=== PATIENT | female | born 1995 | race Caucasian/White ===

== ENCOUNTER 2020-07-13 18:43 | Outpatient (CLI) | payer OTHER, SELFPAY ==
[2020-07-15 02:52] LABS: SARS-CoV-2 RNA PCR Positive
== END 2020-07-13 18:44 | disposition home or self-care (01) ==
LOC: CHSLAB 18:46
PROVIDERS: PCP Family Medicine; Visit Provider Family Medicine
DX: U07.1 COVID-19 (principal); J02.9 Acute pharyngitis, unspecified; J06.9 Acute upper respiratory infection, unspecified
CPT/HCPCS: 87081; 87635; 87880; C9803; U0003

== ENCOUNTER 2021-06-06 12:45 | Outpatient (CLI) | payer OTHER, SELFPAY ==
[2021-06-06 13:05] VITALS: BP 114/79; PULSE 90
[2021-06-06 14:01] VITALS: BP 114/79; PULSE 90
== END 2021-06-06 13:55 | disposition home or self-care (01) ==
LOC: ANHOBOP 12:55 → ANHLDR 12:56
PROVIDERS: PCP Family Medicine; Visit Provider Obstetrics & Gynecology
DX: O26.859 Spotting complicating pregnancy, unspecified trimester (principal); Z3A.00 Weeks of gestation of pregnancy not specified
CPT/HCPCS: 59025; 84112; 99199

== ENCOUNTER 2021-06-13 01:33 | Inpatient (IN) | payer OTHER, SELFPAY ==
[2021-06-13] VITALS (102 sets, daily range): BP systolic 84–143; BP diastolic 45–108; PULSE 60–148; RESP 16; TEMP 36.4–36.6; O2SAT 95–100; BMI 29.0
[2021-06-13 02:39] LABS: Basophils Percent Auto 0.2 % (0.2-1.2); Eosinophils Absolute Auto 0.1 K/mm3 (0-0.3); Eosinophils Percent Auto 0.6 % (0-4.4); Hematocrit 36.6 % (37.0-47.0); Hemoglobin 11.9 g/dL (12.0-15.0); Immature Granulocyte Absolute 0.04 K/mm3 (0.00-0.031); Immature Granulocyte Percent A 0.4 % (0-0.5); Lymphocytes Absolute Auto 2.69 K/mm3 (0.9-3.2); Lymphocytes Percent Auto 26.7 % (18.3-44.2); Mean Corpuscular HGB Conc 32.5 g/dl (32-36); Mean Corpuscular Hemoglobin 28.1 pg (26-34); Mean Corpuscular Volume 86.5 fl (80-100); Mean Platelet Volume 10.2 fl (7.4-10.4); Monocytes Absolute Auto 0.7 K/mm3 (0.1-0.6); Monocytes Percent Auto 7.1 % (2.6-8.5); Neutrophils Absolute Auto 6.5 K/mm3 (1.3-6.7); Platelet Count Result 275 k/mm3 (150-375); Red Blood Count 4.23 M/mm3 (4.2-5.4); Red Cell Distribution Width 12.5 % (11.5-14.5); White Blood Count 10.1 K/mm3 (4.5-10.0)
--- NOTE | 2021-06-13 02:39 | LDADM ---
This patient, Rosalie Glover, was admitted to Labor/Delivery/Recovery 102 on 06/13/21 at 01:33. Plans for labor, pain management and were discussed with patient. Patient/family oriented to hospital policies and general routines including ID bracelet, bed and alarms, visiting hours, pain management, procedures, bathroom and other care routines, personal items, smoking policy, room service/diet and guest tray routines, security routines, and visiting hours. Patient/Family are encouraged to report perceived risks to care and to ask questions if they do not understand what they are told or what they should do. See OBIX for further documentation.
[2021-06-13 02:56] LABS: Glucose Point of Care 86 mg/dl (65-105)
[2021-06-13] MEDS: fentaNYL CITRATE INJ (*CRX) 100 MCG/2 ML VIAL 50 MCG IV PUSH (02:59)
[2021-06-13] MEDS: LACTATED RINGERS 1,000 ML 125 ML IV CONT ×2 (03:44→06:42)
[2021-06-13] MEDS: ONDANSETRON INJ 4 MG/2 ML VIAL IV PUSH (04:52)
--- NOTE | 2021-06-13 06:03 | WPDANESEPPF ---
Anes - Initial Pre Proc Eval Procedure: labor epidural Date/Time: 06/13/21 06:03 Surgeon: Janet Barragan MD Pre Op Diagnosis: labor pain Pre Op Diagnosis: ROM Patient Data Age: 26 Gender: F Height: 1.65 m Weight: 79 kg Last Vital Signs Temp 36.4 C 06/13/21 01:45 Pulse 73 06/13/21 06:02 BP 130/74 06/13/21 06:02 Pulse Ox 97 06/13/21 06:02 Allergies Allergy/AdvReac Type Severity Reaction Status Date / Time codeine Allergy Rash Verified 06/06/21 13:47 Home Medications Medication Instructions Recorded Confirmed Type prenat.vits,reema,[id number] 1 tablet PO DAILY 06/06/21 06/06/21 History [ Vitamin] Laboratory Tests 06/13/21 06/13/21 06/13/21 02:26 02:26 02:26 WBC 10.1 K/mm3 H K/mm3 (4.5-10.0) RBC 4.23 M/mm3 M/mm3 (4.2-5.4) Hgb 11.9 g/dL L g/dL (12.0-15.0) Hct 36.6 % L % (37.0-47.0) MCV 86.5 fl fl (80-100) MCH 28.1 pg pg (26-34) MCHC 32.5 g/dl g/dl (32-36) RDW 12.5 % % (11.5-14.5) Plt Count 275 k/mm3 k/mm3 (150-375) MPV 10.2 fl fl (7.4-10.4) Immature Gran % (Auto) 0.4 % % (0-0.5) Neut % (Auto) 65.0 % % (45.5-73.1) Lymph % (Auto) 26.7 % % (18.3-44.2) Stearns % (Auto) 7.1 % % (2.6-8.5) Eos % (Auto) 0.6 % % (0-4.4) Baso % (Auto) 0.2 % % (0.2-1.2) Lymph # (Auto) 2.69 K/mm3 K/mm3 (0.9-3.2) Stearns # (Auto) 0.7 K/mm3 H K/mm3 (0.1-0.6) Eos # (Auto) 0.1 K/mm3 K/mm3 (0-0.3) Baso # (Auto) 0.0 K/mm3 K/mm3 (0.0-0.1) Abs Immat Gran (auto) 0.04 K/mm3 H K/mm3 (0.00-0.031) Absolute Neuts (auto) 6.5 K/mm3 K/mm3 (1.3-6.7) Absolute Nucleated RBC 0.0 K/mm3 K/mm3 (0.0-0.012) Nucleated RBC % 0.0 % % (0.0-0.2) POC Capillary Glucose RPR Pending Blood Type O Positive Antibody Screen Negative 06/13/21 02:28 WBC RBC Hgb Hct MCV MCH MCHC RDW Plt Count MPV Immature Gran % (Auto) Neut % (Auto) Lymph % (Auto) Stearns % (Auto) Eos % (Auto) Baso % (Auto) Lymph # (Auto) Stearns # (Auto) Eos # (Auto) Baso # (Auto) Abs Immat Gran (auto) Absolute Neuts (auto) Absolute Nucleated RBC Nucleated RBC % POC Capillary Glucose 86 mg/dl mg/dl (65-105) RPR Blood Type Antibody Screen Patient hx anesthesia problems: none Family hx anesthesia problems: none [facility] Past Medical History Medical History No active medical problems Surgical History Surgical History S/P breast lumpectomy S/P tonsillectomy Family History Family History Mother Breast cancer Social History Social History Smoking status: Never smoker Second hand tobacco smoke exposure: No Alcohol intake: never Substance use: never Gender identity (if verbalized by the patient): Female Spiritual care concerns: No Anes - Eval Final PreProcedure Day of Procedure 06/13/21 06:03 Patient weight: overweight Heart: regular rate and rhythm Lungs: clear to auscultation and normal air movement Airway: Mallampati scale Neurological: alert and oriented ASA classification: II Emergent: no Anesthetic plan: proceed Anesthesia type and monitoring: regional epidural and standard monitoring Informed Consent: The patient's anesthetic plan and its attendant risks and benefits were discussed with the patient/family/POA. Questions were solicited and answers provided to the satisfaction of the patient/family/POA.
[2021-06-13 07:36] LABS: Glucose Point of Care 85 mg/dl (65-105)
[2021-06-13] MEDS: OXYTOCIN 30 UNITS/NS 500 ML 30 UNITS/500 ML BAG IV CONT (09:03)
[2021-06-13 09:48] LABS: Glucose Point of Care 76 mg/dl (65-105)
--- NOTE | 2021-06-13 11:01 | WPDOBADMIT ---
Obstetrics - Admit Note Admission Note: record reviewed. No pertinent additions to the history and/or any subsequent changes in the physical findings that are not consistent with the expected course of the were found. pt arrived after SROM, preg complicated by Diet controlled GDM Additions to the history and/or subsequent changes in the physical findings follow. None.
[2021-06-13] MEDS: OXYTOCIN 30 UNITS/NS 500 ML 30 UNITS/500 ML BAG 125 UNITS IV CONT (11:15)
[2021-06-13 11:24] LABS: Rapid Plasma Reagin Non-Reactive (NonReactive)
[2021-06-13] MEDS: WITCH HAZEL 40 PADS 1 PAD TOPICAL (13:03)
[2021-06-13] MEDS: BENZOCAINE 20% AER SPR (*SP) 56 GM CAN 1 SPRAY TOPICAL (13:03)
[2021-06-13] MEDS: IBUPROFEN 600 MG TABLET PO ×2 (13:03→21:05)
--- NOTE | 2021-06-13 14:15 | PC.NURSE ---
Mother called out for assist with feeding. Infant is able to freely thrust tongue past gum ridge and flange both lips. Skin is intact on both nipples, no redness and bruising noted. both nipples are flat, mother was given a nipple shield for first feeding. Infant was unable to latch and draw nipple in. Reviewed feeding cues, frequencies, duration of feedings, feeding elimination flow sheet, and signs of adequate intake. Demonstrated stimulation techniques to wake infant for feeding. Assisted with to breast. Reviewed positioning/alignment in cross cradle, holding breast in ?U? hold and guided asymmetrical latch on. Discussed rational for each. Several attempts made, was unable to latch correctly. After several attempts, was sleepy and did not make eager attempts. Suggested skin to skin for 15-30 minutes. Requested mother call out if infant wakes and has feeding cues before 30 minutes.
[2021-06-13] MEDS: DOCUSATE SODIUM 100 MG CAPSULE PO (16:40)
[2021-06-13] MEDS: ACETAMINOPHEN 325 MG TABLET 650 MG PO ×2 (16:40→23:27)
[2021-06-13] MEDS: MULTIVIT/MIN/PREN/FOL AC/IRON TABLET 1 TAB PO (16:41)
[2021-06-13] MEDS: POLYSACCHARIDE IRON COMPLEX 150 MG CAPSULE PO (16:41)
[2021-06-14] MEDS: IBUPROFEN 600 MG TABLET PO ×2 (03:25→12:36)
[2021-06-14 05:11] LABS: Hematocrit 32.9 % (37.0-47.0); Hemoglobin 10.3 g/dL (12.0-15.0)
[2021-06-14] MEDS: DOCUSATE SODIUM 100 MG CAPSULE PO (07:21)
[2021-06-14] MEDS: ACETAMINOPHEN 325 MG TABLET 650 MG PO (07:21)
[2021-06-14 07:30] VITALS: PULSE 80; RESP 16; O2SAT 98
--- NOTE | 2021-06-14 07:34 | PM.OBPNVD ---
OB - PN: Subj Subjective Date/time seen: 06/14/21 07:34 Patient comments: no complaints baby status: doing well OB - PN: Obj Data Labs CBC & Chem 7: 06/14/21 03:36 Labs: Laboratory Results - last 24 hr 06/13/21 06/13/21 06/13/21 02:26 07:33 09:45 Hgb Hct POC Capillary Glucose 85 76 RPR Non-reactive 06/14/21 03:36 Hgb 10.3 L Hct 32.9 L POC Capillary Glucose RPR OB - PN A/P Plan day: 1 Plan: routine care Time Spent With Patient Time: Total time spent is greater than 50% in coordination of care (as documented) at patient's floor/unit and/or counseling patient: Review of Systems Review of Systems: All systems reviewed & are unremarkable except as noted in HPI and below Exam Narrative: Exam Narrative: perineal lac healing well Const: General: cooperative Limitations: no limitations
--- NOTE | 2021-06-14 07:42 | PM.OBDSVD ---
DS: Admitting Diagnosis Admitting Diagnosis Admitting Diagnosis: SROM OB - DS: Summary OB Procedures : None OB Procedures Intrapartum: Spontaneous Vag Delivery OB Procedures: : None Time Spent with Patient Time attestation: Total time spent providing and/or coordinating discharge services: DS: Data Data Completed and Pending Pending studies at discharge: Pending at discharge 06/13/21 11:19 Surgical [PTH] Routine Labs on day of discharge: Labs from last 24 hours 06/14/21 06/13/21 06/13/21 03:36 09:45 02:26 Hgb 10.3 L Hct 32.9 L POC Capillary Glucose 76 RPR Non-reactive Discharge Plan Discharge Attending physician on discharge: Janet Barragan Discharging Clinician: Nallely Holloway Patient Disposition: Home, Self-Care Activity: no shower Diet: regular Discharge Instructions: Education: Mom and Baby Guide Given to: Mother Follow-Up: Call your delivering provider's office for an appointment to be seen in: 4 Weeks Mom and baby should come to the [facility] for the follow-up appointment. Appointment Date/Time: Wednesday, June 16, 2021 at 11:00 a.m. What to expect at your follow-up visit: Blood Pressure Check Physical Assessment Call [phone] if you are unable to keep your appointment time. BREAST CARE: * Wear a snug supportive bra. * For engorgement discomfort: Bottle Feeding: * May apply ice packs EPISIOTOMY/PERINEAL CARE: * Until bleeding stops, use your shante bottle after urinating * Change your pad frequently throughout the day * You may take sitz baths several times a day (fill your bathtub with warm water and soak for 20 minutes.) Do NOT bathe in the water * No tub baths until seen by your physician - You may shower ACTIVITY: * Rest as much as possible. * Do not exercise or lift anything heavier than your baby (such as laundry or other children.) * Avoid stairs or driving as much as possible. * Do not put anything into the vagina. No douching, tampons, or sexual activity until seen by physician. NOTIFY PHYSICIAN IF YOU HAVE ANY QUESTIONS OR IF ANY OF THE FOLLOWING SYMPTOMS OCCUR: * If your perineum becomes red, swollen, or more painful than what you have experienced in the hospital. * If your vaginal bleeding becomes foul smelling. * If your vaginal bleeding becomes more heavy than a period or if your bleeding changes from pink to bright red. However, you may pass an occasional walnut-sized clot once or twice for the first week . * If you experience a sharp, shooting pain in you calves. DIET: * Eat regular, well-balanced meals. * Drink plenty of fluids daily. Stand Alone Forms: General Discharge Information Follow-up/Referrals: Nallely Holloway CNM [Certified Nurse Software Licensing Specialist] - 4 Weeks Discharge Medications: Continued prenat.vits,reema,djy-jfsa-csuho Tablet 1 tablet PO DAILY RF: 0 Date of admission: 06/13/21 01:33 Primary Care Provider: Brett Stringer Admitting Provider: Janet Barragan Attending physician on admission: Janet Barragan Condition: Stable
--- NOTE | 2021-06-14 07:43 | P.DS_ITS ---
DS: Admitting Diagnosis Admitting Diagnosis Admitting Diagnosis: labor OB - DS: Summary OB Procedures : None OB Procedures Intrapartum: Spontaneous Vag Delivery OB Procedures: : None Time Spent with Patient Time attestation: Total time spent providing and/or coordinating discharge services: DS: Data Data Completed and Pending Pending studies at discharge: Pending at discharge 06/13/21 11:19 Surgical [PTH] Routine Labs on day of discharge: Labs from last 24 hours 06/14/21 06/13/21 06/13/21 03:36 09:45 02:26 Hgb 10.3 L Hct 32.9 L POC Capillary Glucose 76 RPR Non-reactive Discharge Plan Discharge Attending physician on discharge: waldo Discharging Clinician: becka Patient Disposition: Home, Self-Care Activity: no shower Diet: regular Patient Instructions: Antibiotic Form Stand Alone Forms: General Discharge Information Follow-up/Referrals: Nallely Holloway CNM [Certified Nurse Clinical Appeals Reviewer] - 4 Weeks Discharge Medications: Continued Vitamin Tablet 1 tablet PO DAILY RF: 0 Date of admission: 06/13/21 01:33 Primary Care Provider: Brett Stringer Admitting Provider: Janet Barragan Attending physician on admission: Janet Barragan Condition: Stable
--- NOTE | 2021-06-14 08:27 | PM.OBPRVD ---
OB - Delivery Note Procedure Delivery date: 06/13/21 events: Gestational Diabetes Intrapartal events: None Delivery augmentation: pitocin Delivery monitor: external FHT, external uterine and internal uterine Route of delivery: Laceration Description: Perineal - 2nd Degree Delivery repair: vicryl Specimen: Yes Quantitative Blood Loss (ml): 162 Anesthesia type: Epidural Disposition: floor Baby Date of : 06/13/21 Time of : 10:55 Weeks of gestation at delivery: 39 Infant gender: Male Weight (pounds): 6 Weight (ounces): 9 presentation: vertex position: Left Occiput Anterior Placenta delivery description: Spontaneous cord vessel description: 3 Vessels, Clamped/Cut and Delayed Cord Clamping score one minute: 9 score five minutes: 9 Narrative: mother and baby skin to skin in stable codition
[2021-06-14 09:25] VITALS: BP 139/84; PULSE 80; RESP 16; TEMP 36.4; O2SAT 98
--- NOTE | 2021-06-14 10:53 | WPDANLDPN2 ---
Anes-Prog Note L&D Date/Time: 06/14/21 10:53 Comfortable throughout: labor and delivery Neuraxial method: epidural Epidural/Spinal procedure site: clean & non-tender Neuro status: Neuro function grossly intact. Cardiovascular status: normal Respiratory status: normal Airway patency: baseline Mental status: baseline Post-Op hydration status: normal Vital Signs: Last Vital Signs Temp 36.6 C 06/13/21 19:29 Pulse 77 06/13/21 19:29 Resp 16 06/13/21 19:29 BP 127/73 06/13/21 19:29 Pulse Ox 96 06/13/21 13:38 Pain score (VAS): 0 Post-procedural complaints: none Patient feedback: Patient satisfied with anesthetic care.
--- NOTE | 2021-06-14 17:49 | PC.NURSE ---
Patient viewed the discharge video Mother & Baby Care, The First Two Weeks . Patient was given the opportunity and encouraged to ask questions. Patient verbalized understanding of information shared and has been given the mother/baby guide for home reference.
[2021-06-16 11:06] VITALS: BP 130/95; PULSE 83; RESP 20; TEMP 37; O2SAT 97
== END 2021-06-14 18:27 | disposition home or self-care (01) | DRG 807 ==
LOC: ANHLDR 02:07 → ANHOB2 13:44
PROVIDERS: Advanced Practice Midwife; Admitting Provider Obstetrics & Gynecology; PCP Family Medicine; Visit Provider Obstetrics & Gynecology
DX: O24.420 Gestational diabetes mellitus in childbirth, diet controlled (principal); Z37.0 Single live birth; Z3A.39 39 weeks gestation of pregnancy; O70.1 Second degree perineal laceration during delivery
CPT/HCPCS: 36415; 82948; 84112; 85014; 85018; 85025; 86592; 86850; 86900; 86901; 88307; A9270; J2405; J2590; J2795; J3010; J7120

== ENCOUNTER 2025-03-05 09:52 | Outpatient (CLI) | payer BC, SELFPAY ==
--- NOTE | ~2025-03-05 | US_ITS ---
US breast LT limited 03/05/2025 10:15 Indication: Palpable area in the subareolar location Procedure: High-resolution Limited ultrasound of the left breast Comparison: No prior studies for comparison. Findings: In the subareolar location of the left breast at 7:00 in the area palpable concern there is an 1.3 cm cyst or focally dilated duct. No suspicious masses are identified to suggest malignancy. Impression: 1: No sonographic evidence for malignancy in the left breast. BI-RADS CATEGORY 2 - BENIGN FINDINGS Reviewed, dictated and finalized at location A. Impression: 1: No sonographic evidence for malignancy in the left breast. BI-RADS CATEGORY 2 - BENIGN FINDINGS
--- OUTSIDE RECORDS SUMMARY | 2025-03-05 10:28 | XMS_ITS | Data Portability ---
Author Organization [facility] Address [address] [place] [address] [place] [address] Care Team Providers Care Health Communications Specialist Name Role Phone AYANNA GREGORY Primary Care Provider Assessment Encounter Date Assessment Date Assessment LastModified by Organization Details LastModified Time 01/13/2025 01/13/2025 Patient is 16___weeks . Discussed plan. Not available 01/13/2025 16:24:01 02/03/2025 02/03/2025 Patient is __19_weeks . Discussed plan. Not available 02/03/2025 17:21:21 03/03/2025 03/03/2025 Patient is _23__weeks . Discussed plan. Not available 03/03/2025 18:02:12 Plan of Treatment Reminders Order Date Submit Date Provider Last Modified By Organization Details Last Modified Time Details Appointments OB ROUTINE 2024 08:30A M Nallely Holloway CNM Not available Not available Not available Lab None recorded. Referral None recorded. Procedures None recorded. Surgeries None recorded. Imaging US, obstetric , 2nd or 3rd trimester 2024 025 [email or web address] [facility], [address], [address], [place], [address], 02/03/2025 18:21:50 Medication Orders venlafaxi ne ER 75 mg capsule,e xtended release 24 hr 2024 025 [email or web address] [id number], [address] [place], [address], 01/13/2025 16:27:35 Patient TargetsNo targets recorded. Patient InstructionsNo instructions recorded. Reason for Referral None Reported. Results Created Date Observation Date Name Description Value Unit Range Abnormal Flag Note LastModifiedBy Organization Detail LastModifiedTime 12/24/19 25 12/24/2024 [UNIT Y] ANEUP LOIDY NIPT fraction 12.4% normal Not Available [facility] [address], [place], [address], 12/24/2024 00:01:52 12/24/19 25 12/24/2024 [UNIT Y] ANEUP LOIDY NIPT 22Q11.2 microdeletio n LOW RISK <1 in 10,000 normal Not Available [facility] [address], [place], [address], 12/24/2024 00:01:52 12/24/19 25 12/24/2024 [UNIT Y] ANEUP LOIDY NIPT sex chromosome aneuploidy NOT DETECT ED normal Not Available [facility] [address], [place], [address], 12/24/2024 00:01:52 12/24/19 25 12/24/2024 [UNIT Y] ANEUP LOIDY NIPT monosomy X LOW RISK <1 in 10,000 normal Not Available [facility] [address] [place], [address], 12/24/2024 00:01:52 12/24/19 25 12/24/2024 [UNIT Y] ANEUP LOIDY NIPT trisomy 13 LOW RISK <1 in 10,000 normal Not Available [facility] [address] [place], [address], 12/24/2024 00:01:52 12/24/19 25 12/24/2024 [UNIT Y] ANEUP LOIDY NIPT trisomy 18 LOW RISK <1 in 10,000 normal Not Available [facility] [address] [place], [address], 12/24/2024 00:01:52 12/24/19 25 12/24/2024 [UNIT Y] ANEUP LOIDY NIPT trisomy 21 LOW RISK <1 in 10,000 normal Not Available [facility] [address], [place], [address], 12/24/2024 00:01:52 12/24/19 25 12/24/2024 [UNIT Y] ANEUP LOIDY NIPT sex FEMALE normal Not Available [facility] [address], [place], [address], 12/24/2024 00:01:52 12/24/19 25 12/24/2024 [UNIT Y] ANEUP LOIDY NIPT gestation SINGLE TON normal Not Available [facility] [address], [place], [address], 12/24/2024 00:01:52 12/24/19 25 12/24/2024 [UNIT Y] ANEUP LOIDY NIPT for detailed report, see pdf See PDF normal Not Available [facility] [address], [place], [address], 12/24/2024 00:01:52 12/26/19 25 12/26/2024 [UNIT Y] JAYCEE Lynn sickle cell disease/beta -thalassemia /hemoglobino pathies carrier screen NEGATI VE normal Not Available [facility] [address], [place], [address], 12/26/2024 02:33:52 12/26/19 25 12/26/2024 [UNIT Y] JAYCEE Lynn alpha-thalas semia carrier screen NEGATI VE normal Not Available [facility] [address], [place], [address], 12/26/2024 02:33:52 12/26/19 25 12/26/2024 [UNIT Y] JAYECE Lynn cystic fibrosis carrier screen NEGATI VE normal Not Available [facility] [address], [place], [address], 12/26/2024 02:33:52 12/26/19 25 12/26/2024 [UNIT Y] JAYCEE Lynn spinal muscular atrophy carrier screen NEGATI VE 2 SMN1 copies , SNP not presen t normal Not Available [facility] [address], [place], [address], 12/26/2024 02:33:52 12/26/19 25 12/26/2024 [UNIT Y] JAYCEE LASHANDA Lynn for detailed report, see pdf See PDF normal Not Available [facility] [address], [place], [address], 12/26/2024 02:33:52 12/16/19 25 12/16/2024 HIV 1/2 ANTIG EN/AN TIBOD Y, REFLE X CONFI RMATI ON HIV antigen/anti body Nonrea ctive nonrea ctive HIV-1 antig en and HIV-1 /HIV- 2 antib odies were not detec fabiola. No labor atory evide nce of HIV infec tion. Not Available [facility] (Lab) [address] [facility], [place], [address], 12/17/2024 11:05:59 12/16/19 25 12/16/2024 HEPAT ITIS B SURFA CE ANTIG EN hepatitis B surface antigen Non-re active non-re active This assay was perfo rmed using [employer] ratio n reage nts and test kits. Value s obtai chen with other assay metho ds or kits canno t be used inter sandoval eably . Not Available [facility] (Lab) [address] [facility], [place], [address], 12/17/2024 11:05:59 12/16/19 25 12/16/2024 HEPAT ITIS C ANTIB DIO SCREE N, REFLE X TO CONFI RMATI ON hepatitis C antibody Non-re active non-re active Antib odies to HCV Not Detec fabiola, does not exclu de the possi bilit y of expos ure to HCV. Not Available [facility] (Lab) [address], [place], [address], 12/17/2024 11:05:59 12/16/19 25 12/16/2024 CBC W/DIF F WBC 10.1 10'3/ uL 3.5-10 .5 Not Available [facility] (Lab) [address], [place], [address], 12/17/2024 11:06:00 12/16/19 25 12/16/2024 CBC W/DIF F RBC 4.79 10'6/ uL (based on docume nted legal sex) 3.80-5 .20 Not Available [facility] (Lab) [address], [place], [address], 12/17/2024 11:06:00 12/16/19 25 12/16/2024 CBC W/DIF F HGB 13.7 g/dL (based on docume nted legal sex) 11.6-1 5.4 Not Available [facility] (Lab) [address], [place], [address], 12/17/2024 11:06:00 12/16/19 25 12/16/2024 CBC W/DIF F HCT 40.6 % (based on docume nted legal sex) 34.0-4 5.0 Not Available [facility] (Lab) [address], [place], [address], 12/17/2024 11:06:00 12/16/19 25 12/16/2024 CBC W/DIF F MCV 84.8 fL 80.0-9 9.0 Not Available [facility] (Lab) [address] [place], [address], 12/17/2024 11:06:00 12/16/19 25 12/16/2024 CBC W/DIF F MCH 28.6 pg 27.0-3 4.0 Not Available [facility] (Lab) [address], [place], [address], 12/17/2024 11:06:00 12/16/19 25 12/16/2024 CBC W/DIF F MCHC 33.7 g/dL 32.0-3 5.5 Not Available [facility] (Lab) [address] [facility], [place], [address], 12/17/2024 11:06:00 12/16/19 25 12/16/2024 CBC W/DIF F RDW 12.2 % 11.0-1 5.0 Not Available [facility] (Lab) [address] [facility], [place], [address], 12/17/2024 11:06:00 12/16/19 25 12/16/2024 CBC W/DIF F plt 324 10'3/ uL 150-40 0 Not Available [facility] (Lab) [address] [facility], [place], [address], 12/17/2024 11:06:00 12/16/19 25 12/16/2024 CBC W/DIF F MPV 9.8 fL 8.8-12 .1 Not Available [facility] (Lab) [address] [facility], [place], [address], 12/17/2024 11:06:00 12/16/19 25 12/16/2024 CBC W/DIF F neutrophils 70.8 % 34.0-7 3.0 Not Available [facility] (Lab) [address] [facility], [place], [address], 12/17/2024 11:06:00 12/16/19 25 12/16/2024 CBC W/DIF F lymphocytes 23.9 % 15.0-5 0.0 Not Available [facility] (Lab) [address] [facility], [place], [address], 12/17/2024 11:06:00 12/16/19 25 12/16/2024 CBC W/DIF F monocytes 4.4 % 1.0-15 .0 Not Available [facility] (Lab) [address] [facility], [place], [address], 12/17/2024 11:06:00 12/16/19 25 12/16/2024 CBC W/DIF F eosinophils 0.4 % 0.0-8. 0 Not Available [facility] (Lab) [address] [facility], [place], [address], 12/17/2024 11:06:00 12/16/19 25 12/16/2024 CBC W/DIF F basophils 0.3 % 0.0-2. 0 Not Available [facility] (Lab) [address] [facility], [place], [address], 12/17/2024 11:06:00 12/16/19 25 12/16/2024 CBC W/DIF F immature granulocytes 0.2 % no define d refere nce range Immat ure Granu locyt es (IG) repre sents autom ated enume ratio n of Metam yeloc ytes, Myelo cytes and Promy elocy jesus when IG is < 5%. Blast s are not inclu ded in IG and repor fabiola separ ately if prese nt. Not Available [facility] (Lab) [address] [facility], [place], [address], 12/17/2024 11:06:00 12/16/19 25 12/16/2024 CBC W/DIF F absolute neutrophils 7.2 10'3/ uL 1.5-8. 0 Not Available [facility] (Lab) [address] [facility], [place], [address], 12/17/2024 11:06:00 12/16/19 25 12/16/2024 CBC W/DIF F absolute lymphocytes 2.4 10'3/ uL 1.0-4. 0 Not Available [facility] (Lab) [address] [facility], [place], [address], 12/17/2024 11:06:00 12/16/19 25 12/16/2024 CBC W/DIF F absolute monocytes 0.4 10'3/ uL 0.2-1. 0 Not Available [facility] (Lab) [address], [place], [address], 12/17/2024 11:06:00 12/16/19 25 12/16/2024 CBC W/DIF F absolute eosinophils 0.0 10'3/ uL 0.0-0. 6 Not Available [facility] (Lab) [address], [place], [address], 12/17/2024 11:06:00 12/16/19 25 12/16/2024 CBC W/DIF F absolute basophils 0.0 10'3/ uL 0.0-0. 3 Not Available [facility] (Lab) [address], [place], [address], 12/17/2024 11:06:00 12/16/19 25 12/16/2024 CBC W/DIF F absolute immature granulocytes 0.0 10'3/ uL 0.00-0 .10 Refer ence range s for nonbi nary/ inter sex or unspe cifie d gende r patie nts have not been estab lishe d. Pleas e refer to the alanao wing table for range s estab lishe d for cisge nder patie nts and evalu ate in the clini reema rosetta xt of the indiv idual patie nt: https ://la paula book. nm.or g/Gen derX Not Available [facility] (Lab) [address], [place], [address], 12/17/2024 11:06:00 12/16/19 25 12/16/2024 RUBEL LA IGG ANTIB DIO, QUANT rubella antibodies, IgG Reacti ve reacti ve Not Available [facility] (Lab) [address], [place], [address], 12/17/2024 11:06:00 12/16/19 25 12/16/2024 RUBEL LA IGG ANTIB DIO, QUANT rubella antibodies, IgG quant 57.5 IU/mL >=10 Non-r eacti ve (Non- Immun e) <10 IU/mL React selena (Immu ne) > or = 10 IU/mL Not Available [facility] (Lab) [address], [place], [address], 12/17/2024 11:06:00 12/16/19 25 12/16/2024 HEMOG LOBIN A1C hemoglobin A1C 5.2 % 4.0-5. 6 The Ameri can Diabe jesus Assoc iatio n recom mends that a prima ry goal of thera py shoul d be a HBA1C of < 7% and that physi cians shoul d reeva luate the treat ment regim en in patie nts with HBA1C value s consi stent ly > 8%. <5.7% Sammie l 5.7 - 6.4% Incre ased risk for diabe jesus >=6.5 % Diagn ostic of diabe jesus <7.0% Goal of thera py >8.0% Actio n sugge sted Not Available [facility] (Lab) [address], [place], [address], 12/17/2024 11:06:00 12/16/19 25 12/16/2024 TYPE/ RH/SC REEN ABO/Rh type O POS Not Available [facility] (Lab) [address] [facility], [place], [address], 12/17/2024 11:06:01 12/16/19 25 12/16/2024 TYPE/ RH/SC REEN antibody screen NEG Not Available [facility] (Lab) [address], [place], [address], 12/17/2024 11:06:01 12/16/19 25 12/16/2024 TYPE/ RH/SC REEN exp date 2024 23:59 Not Available [facility] (Lab) [address], [place], [address], 12/17/2024 11:06:01 12/16/19 25 12/16/2024 RPR SCREE N, REFLE X TITER /CONF IRMAT ION RPR screen Nonrea ctive nonrea ctive Not Available [facility] (Lab) [address] [facility], [place], [address], 12/17/2024 11:06:01 12/16/19 25 12/16/2024 CULTU RE: URINE result report SEE RESULT S BELOW Test: Cultu re: Urine Speci men Sourc e: Urine - Clean Catch Speci men Type: Urine Speci men Date: 2024 1719 Resul t Date: 2024 1324 Resul t Statu s: Final resul t Abnor mal: No Resul ting Lab: [facility] [address] [facility] [id number] Tel: CULTU RE ----- ----- ----- --- Organ ism(s ) consi stent with uroge nital or skin janine . Repea t cultu re if sympt oms indic ate. Not Available [facility] (Lab) [address] [place], [address], 12/18/2024 14:27:40 12/16/19 25 12/16/2024 drug scree n, urine Amphetamines : negati ve Not Available [facility] [address], [place], [address], 12/16/2024 18:02:14 12/16/19 25 12/16/2024 drug scree n, urine Cannabinoids : negati ve Not Available [facility] [address], [place], [address], 12/16/2024 18:02:14 12/16/19 25 12/16/2024 drug scree n, urine Cocaine: negati ve Not Available [facility] [address], [place], [address], 12/16/2024 18:02:14 12/16/19 25 12/16/2024 drug scree n, urine Opiates: negati ve Not Available [facility] [address], [place], [address], 12/16/2024 18:02:14 12/16/19 25 12/16/2024 drug scree n, urine Phenocyclidi ne: negati ve Not Available [facility] [address], [place], [address], 12/16/2024 18:02:14 12/16/19 25 12/16/2024 drug scree n, urine Barbiturates : negati ve Not Available [facility] [address], [place], [address], 12/16/2024 18:02:14 12/16/19 25 12/16/2024 drug scree n, urine Benzodiazepi don: negati ve Not Available [facility] [address], [place], [address], 12/16/2024 18:02:14 12/16/19 25 12/16/2024 drug scree n, urine Ethanol: negati ve Not Available [facility] [address], [place], [address], 12/16/2024 18:02:14 12/16/19 25 12/16/2024 drug scree n, urine Hallucinogen s: negati ve Not Available [facility] [address], [place], [address], 12/16/2024 18:02:14 12/16/19 25 12/16/2024 drug scree n, urine Inhalants: negati ve Not Available [facility] [address], [place], [address], 12/16/2024 18:02:14 12/16/19 25 12/16/2024 drug scree n, urine Anabolic Steroids: negati ve Not Available [facility] [address], [place], [address], 12/16/2024 18:02:14 12/16/19 25 12/16/2024 drug scree n, urine Other: negati ve Not Available [facility] [address], [place], [address], 12/16/2024 18:02:14 12/16/19 25 12/16/2024 US, obste tric, nucha l trans lucen cy No observ ation record ed. [facility] [address], [place], [address], 12/16/2024 18:45:46 12/16/19 25 12/16/2024 US, obste tric, 1st trime ster No observ ation record ed. [email or web address] [address], [place], [address], 12/16/2024 18:44:31 12/16/19 25 12/16/2024 US, obste tric, nucha l trans lucen cy No observ ation record ed. [email or web address] [facility] [address], [place], [address], 12/16/2024 21:47:56 02/04/20 25 02/03/2025 US, obste tric, 2nd or 3rd trime ster No observ ation record ed. [facility] [address], [place], [address], 02/03/2025 17:58:10 02/04/20 25 02/03/2025 US, obste tric, 2nd or 3rd trime ster No observ ation record ed. [email or web address] [address], [place], [address], 02/03/2025 23:39:17 03/05/20 25 03/05/2025 US, ethan boggs teral No observ ation record ed. [facility] [address] [place], [address], 03/05/2025 11:24:19 Result Notes None recorded. Problems Name Problem SNOMED Code Status Onset Date Resolution Date Notes Provider Name and Address Organization Details Recorded Time Breast lump 90364240 Completed 201505/19/2021 Lump in breast;R ecorded Elsewher e: No Locat ion: [facility] S ource: EHR Hitting Coach yonny: N Practi ce ID: [id number] Zion lable Time: 01:00:00 PM Iris Baer [facility] 10:45:10 Speciali zed medical examinat ion Completed 201201/04/2021 Gynecolo gical Examinat ion;Tonny rded Elsewher e: No Locat ion: [facility] S ource: EHR Hitting Coach yonny: N Practi ce ID: [id number] Zion lable Time: 03:15:00 PM Iris Baer [facility], [facility] 17:27:57 Dysmenor douglas [id number] Completed 201301/04/2021 Dysmenor douglas;Rec orded Elsewher e: No Locat ion: [facility] S ource: EHR Hitting Coach yonny: N Practi ce ID: [id number] Zion lable Time: 05:15:00 PM Iris brown [facility] 17:27:23 Pregnanc y test negative [id number] Completed 201801/04/2021 Encounte r for pregnanc y test, result negative ;Recorde d Elsewher e: No Locat ion: [facility] S ource: EHR Hitting Coach yonny: N Practi ce ID: [email or web address] Zion lable Time: 03:45:00 PM Iris Baer [facility] 17:27:[address] Concept Completed 201601/04/2021 Encounte r for general adult medical exam with abnormal finding; Recorded Elsewher e: No [facility]: EHR Hitting Coach yonny: N Practi ce ID: [id number] Zion lable Time: 01:00:00 PM Iris Keyur brown, [facility] 1 17:27:49 Miscarri age [id number] Completed 201801/04/2021 Complete or unsp spontane ous without complica tion;Rec orded Elsewher e: No Locat ion: [facility] Source: EHR Hitting Coach yonny: N Practi ce ID: [id number] Zion lable Time: 06:00:00 PM Iris Baer [facility], [facility] [address] 17:27:[address] Concept Completed 201501/04/2021 Well woman check w/ abnormal finding; Recorded Elsewher e: No Locat ion: [facility] S ource: EHR Hitting Coach yonny: N Practi ce ID: [id number] Zion lable Time: 01:00:00 PM Iris Baer [facility] [address] 17:27:[address] Concept Completed 201511/14/2020 Encntr for routine child health exam w/o abnormal findings ;Recorde d Elsewher e: No Locat ion: [facility] S ource: EHR Hitting Coach yonny: N Practi ce ID: [id number] Zion lable Time: 01:00:00 PM Lashay brown, [facility] 0 18:00:34 Finding of contents of cervix [id number] Completed 201801/04/2021 Weeks of gestatio n of pregnanc y not specifie d;Record ed Elsewher e: No Locat ion: [facility] Source: EHR Hitting Coach yonny: N Practi ce ID: [id number] Zion lable Time: 06:00:00 PM Iris brown [facility] 1 17:27:25 Screenin g for malignan t neoplasm of cervix Completed 201201/04/2021 Screenin g for malignan t neoplasm s of the cervix;R ecorded Elsewher e: No Locat ion: [facility] S ource: EHR Hitting Coach yonny: Leah Huston ce ID: [id number] Zion lable Time: 03:15:00 PM Iris Baer [facility] 17:27:52 Hyperten sive disorder [id number] Completed 201605/19/2021 Hyperten thang;Rec orded Elsewher e: No Locat ion: [facility] S ource: EHR Hitting Coach yonny: N Mannyti ce ID: [id number] Zion lable Time: 01:00:00 PM Iris Baer [facility], [facility] 10:45:13 Pregnanc y [id number] Completed 202001/04/2021 Iris Baer [facility], [facility] 5 18:04:00 Idiopath ic urticari a [id number] Completed Roberta summers [facility] 13:38:18 Elevated blood-pr essure reading without diagnosi s of hyperten thang [id number] Completed very anxious in office. will check at home Roberta summers [facility] 13:38:18 Gestatio nal diabetes mellitus 41800337 Completed 2020 ruled in per SP Roberta summers [facility] 13:38:18 Pregnanc y [id number] Active 2024 Iris Baer [facility] 5 18:04:00 Maternal history of gestatio nal diabetes 342004383 Active 2020, diet Nallely Holloway, BOB [address], [place], [address], [facility] 12:51:17 Problem Notes None recorded. Procedures Surgical History Date Name Laterality Status Provider Name and Address Organization Details Recorded Time 12/18/19 25 Colposcopy completed Nallely Holloway CNM [address], [place], [address], [facility] 12/18/2024 15:30:47 12/18/19 25 Colposcopy completed Irisgabino Baer [facility] 12/18/2024 15:17:39 12/18/19 25 Colposcopy completed Iris Baer [facility] 12/18/2024 15:19:17 11/06/20 24 Date of Last Pap Smear completed Iris Baer [facility] 11/06/2024 16:05:02 11/25/19 16 Breast Biopsy completed Stella Briggs [facility] 12/07/2020 17:35:54 11/25/19 08 Tonsillectomy completed Iris Baer [facility] 12/27/2024 13:41:45 Imaging Results Imaging Date Name Status LastModified by Organization Details LastModified Time 12/16/2024 US, obstetric, nuchal translucency completed donald [facility] [address], [place], [address], 12/16/2024 18:45:46 12/16/2024 US, obstetric, 1st trimester completed [email or web address] [facility] [address], [place], [address], 12/16/2024 18:44:31 12/16/2024 US, obstetric, nuchal translucency completed [email or web address] [address], [place], [address], 12/16/2024 21:47:56 02/03/2025 US, obstetric, 2nd or 3rd trimester completed [email or web address] [facility] [address], [place], [address], 02/03/2025 17:58:10 02/03/2025 US, obstetric, 2nd or 3rd trimester completed marichuy [address], [place], [address], 02/03/2025 23:39:17 03/05/2025 US, breast, unilateral active [facility] [address] [place], [address], 03/05/2025 11:24:19 Procedure Notes None recorded. Medical Equipment None Reported. Allergies Allergen ID Allergen Name Allergen Category Reaction Reaction Severity Criticality Documentation Date Start Date Code Code System Note Provider Name and Address Organization Details Recorded Time 64246 codeine medicatio n itching rash Not available Not available Not available 11/11/2020 2670 RxNorm Stella Briggs [facility] 3 15:30:01 Medications Name Sig Start Date Stop Date Status Note LastModified by Organization Details LastModified Time venlafaxi ne ER 37.5 mg capsule,e xtended release 24 hr TAKE 1 CAPSULE (37.5 MG) BY ORAL ROUTE ONCE DAILY WITH FOOD, THEN INCREASE TO 75 MG DAILY 11/06 completed Not Available Not Available Not Available venlafaxi ne ER 75 mg capsule,e xtended release 24 hr TAKE 1 CAPSULE BY MOUTH EVERY DAY active Not Available Not Available No t Available azithromy keven 250 mg tablet TAKE 2 TABLETS BY MOUTH TODAY, THEN TAKE 1 TABLET DAILY FOR 4 DAYS 08/29 completed Not Available Not Available Not Available minocycli ne 100 mg capsule TAKE 1 TAB TWICE DAILY WITH FOOD UNTIL CLEAR, THEN USE 5-7 DAYS AT A TIME FOR FLARES NEEDED. 11/06 completed Not Available Not Available Not Available pimecroli mus 1 % topical cream APPLY ONE TO TWO DAILY TO AFFECTED AREAS. IN ROTATION WITH LILLY . 11/06 completed Not Available Not Available Not Available tretinoin 0.05 % topical cream APPLY TO AFFECTED AREA EVERY DAY AT BEDTIME 11/06 completed Not Available Not Available Not Available metoclopr amide 5 mg tablet 12/16 completed Not Available Not Available Not Available Shyla 0.35 mg tablet take 1 tablet by oral route every day 01/08 completed Prescrib ed Elsewher e: No Locat ion: [facility] odify By: an becerra DateTime : 01/07/20 01:00:00 PM Not Available Not Available Not Available Stool Softener 07/11 completed Not Available Not Available Not Available 10/11 completed Not Available Not Available Not Available Minastrin 24 Fe 1 mg-20 mcg (24)/75 mg (4) chewable tablet TAKE 1 TABLET BY MOUTH EVERY DAY 11/14 completed Prescrib ed Elsewher e: No [facility] By: an becerra DateTime : 01/08/20 09:31:05 AM Not Available Not Available Not Available OneTouch Ultra Blue Test Strip 07/11 completed Not Available Not Available Not Available OneTouch Ultra2 Meter 07/11 completed Not Available Not Available Not Available OneTouch Delica Plus Lancet 33 gauge 07/11 completed Not Available Not Available Not Available Slynd 4 mg (28) tablet Take 1 tablet every day by oral route. 08/29 completed [facility] 0642-747 0-02 Lot [id number] Exp 11/2023 Not Available Not Available Not Available Vitals Date Recorded Body weight Body mass index (BMI) Body height Systolic blood pressure Diastolic blood pressure Provider Name and Address Organization Details Last Updated DateTime 12/18/2024 90521.70 891 g 21.7 kg/m2 172.72 cm 121 mm[Hg] 83 mm[Hg] Iris Baer [facility] 15:14:19 Date Recorded Body height Body mass index (BMI) Body weight Systolic blood pressure Diastolic blood pressure Provider Name and Address Organization Details Last Updated DateTime 01/13/2025 172.72 cm 22.5 kg/m2 23021.67 076 g 121 mm[Hg] 81 mm[Hg] Iris Baer [facility] 5 16:11:14 Date Recorded Body weight Body mass index (BMI) Body height Systolic blood pressure Diastolic blood pressure Provider Name and Address Organization Details Last Updated DateTime 02/03/2025 98182.67 076 g 22.5 kg/m2 172.72 cm 125 mm[Hg] 85 mm[Hg] Iris Baer [facility] 5 17:12:54 Date Recorded Body height Body mass index (BMI) Body weight Systolic blood pressure Diastolic blood pressure Provider Name and Address Organization Details Last Updated DateTime 03/03/2025 172.72 cm 23.4 kg/m2 79790.22 g 133 mm[Hg] 85 mm[Hg] Irisgabino Baer [facility] 5 17:15:02 Social History Question Answer Notes LastModified by Organizat ion Details LastModified Time Tobacco Smoking Status Never Smoker Lashay Quirino brown, [facility] 11/14/2020 18:02:42 What Is Your Level Of Alcohol Consumption? None [email or web address] Information not available 11/06/2024 If You Are , What Was Your Level Of Alcohol Consumption Prior To ? Occasional [email or web address] Information not available 11/06/2024 How Many Years Have You Consumed Alcohol? 3 Information not available 12/07/2020 Are You Blind Or Do You Have Difficulty Seeing? No [email or web address] Information not available 02/07/2021 What Is Your Level Of Caffeine Consumption? Occasional [email or web address] Information not available 03/08/2021 In The 14 Days Before Symptom Onset, Have You Had Close Contact With A Laboratory-confir med COVID-19 While That Case Was Ill? No [email or web address] Information not available 02/07/2021 In The 14 Days Before Symptom Onset, Have You Had Close Contact With A Person Who Is Under Investigation For COVID-19 While That Person Was Ill? No [email or web address] Information not available 02/07/2021 Have You Been To An Area Known To Be High Risk For COVID-19? No [email or web address] Information not available 02/07/2021 Are You Deaf Or Do You Have Serious Difficulty Hearing? No Information not available 02/07/2021 What Type Of Diet Are You Following? REGULAR Information not available 02/07/2021 Do You Or Have You Ever Used E-cigarettes Or Vape? Never Used Electronic Cigarettes [email or web address] Information not available 11/14/2020 How Many Days Of Moderate To Strenuous Exercise, Like A Brisk Walk, Did You Do In The Last 7 Days? 4 Information not available 12/07/2020 What Was The Date Of Your Most Recent Tobacco Screening? 03/03/2025 Information not available 03/03/2025 Have You Ever Been Counseled For Unhealthy Alcohol Use? No Information not available 12/07/2020 Do You Use Your Seat Belt Or Car Seat Routinely? Yes [email or web address] Information not available 02/07/2021 Do You Have Smoke And Carbon Monoxide Detectors In Your Home? Yes [email or web address] Information not available 02/07/2021 Do You Or Have You Ever Used Smokeless Tobacco? Never Used Smokeless Tobacco [email or web address] Information not available 11/14/2020 How Much Tobacco Do You Smoke? No [email or web address] Information not available 11/14/2020 Do You Feel Stressed (tense, Restless, Nervous, Or Anxious, Or Unable To Sleep At Night)? [id number] [email or web address] Information not available 02/07/2021 Do You Use Any Illicit Or Recreational Drugs? No Information not available 12/07/2020 Do You Use Sunscreen Routinely? Yes Information not available 02/07/2021 Has Tobacco Cessation Counseling Been Provided? No Information not available 12/07/2020 Do You Or Have You Ever Used Any Other Forms Of Tobacco Or Nicotine? No Information not available 12/07/2020 How Many Days In The Past Year Have You Consumed 4 Or More Drinks? 0 Information no t available 12/07/2020 Sex: Unknown Functional Status Question Answer Note LastModified by Organizat ion Details LastModified Time Do you have difficulty walking or climbing stairs? No [email or web address] Information not available 08/29/2022 Are you able to walk? YESWOREST [email or web address] Information not available 02/07/2021 Are you able to care for yourself? Yes [email or web address] Information not available 08/29/2022 Do you have difficulty dressing or bathing? No Information not available 08/29/2022 What is your exercise level? Moderate Information not available 12/07/2020 Mental Status None recorded. Family History Relationship Description Onset Age of this Age Resolved Age Notes LastModified by Organization Details LastModified Time Brother Hypertensive disorder Not available 2020 17:31:27 Maternal Aunt Malignant tumor of breast Not available 2020 17:31:41 Maternal Grandmother Malignant neoplasm of uterus Not available 2020 17:31:55 Maternal Grandmother Malignant tumor of lung Not available 2020 17:32:10 Maternal Grandmother Malignant tumor of colon Not available 2020 17:32:37 Mother Malignant tumor of breast Not available 2020 17:32:53 Paternal Aunt Hypertensive disorder Not available 2020 17:33:15 Paternal Grandfather Diabetes mellitus Not available 2020 17:33:26 Paternal Grandmother Hypertensive disorder Not available 2020 17:33:39 Medical History Condition Response Allergies (Food, seasonal, environmental ) N Other N Breast Cancer N Drug/Latex Allergies/Reactions Y Blood Transfusion N Dermatologic Disorders N Lung Disease N Defects or Inherited Disease N Breast Problem Y Gestational Diabetes Y Hematologic disorders N Anesthesia Complications N History of STI Y Deep Vein Thrombosis N Polycystic ovary syndrome N Anxiety Disorder N Autoimmune disease N Arthritis N Infertility N Polyps N Acid Reflux (GERD) N History of abnormal pap Y Cancer N Stroke N Varicosities N Neurologic/Epilepsy N Endometriosis N High Cholesterol N Headaches N Fibromyalgia N Kidney Disease N Heart Problems N Kidney or Bladder Problems N Thyroid Problems N GI Problems N Eating Disorder N Anemia N Art (IVF or FET) N Psychiatric Illness N Ovarian Cancer N Diabetes N Pulmonary (TB, Asthma) N Hepatitis/Liver Disease N Eczema N Urinary Tract Infection N Abuse/Domestic Violence N Asthma N Trauma/Violence N Depression/ depression N Heart Disease N Pre-Eclampsia N Hypertension Y Osteoporosis N Thrombophilias N Gynecological History Statement/Question Response Abnormal Pap Y Date of Last Mammogram Date of LMP 09/15/2024 STIs/STDs Y Was last menstrual period normal Y Colposcopy 12/18/2024 Current Control Method Date of Last Colonoscopy Date of DEXA bone scan Date of Last Pap Smear 11/06/2024 Desired Control Method LMP Approximate Obstetrics History GPAL:G 3 P 1 0 1 1 Type Value Full Term 1 Spontaneous 1 Living 1 Total 3 Immunizations Vaccine Type Date Status Note Provider Nam e and Address Organization Details Recorded Time COVID-19, mRNA, LNP-S, PF, 30 mcg/0.3 mL dose 10/05/2021 completed Iris Baer [facility] 08/29/2022 15:02:31 Past Encounters Encounter ID Performer Location Encounter Start Date Encounter Closed Date Diagnosis/Indication Diagnosis SNOMED-CT Code Diagnosis ICD10 Code Diagnosis Note [id number] Renee Haley [facility] [address],[facility] [place] [address] 11/14/2020 17:22:43 11/15/2020 08:39:31 [id number] Riana Kerr [facility] [address] [address] 11/14/2020 17:23:27 11/20/2020 15:29:49 Gynecologic examination 12006755 Z01.419 test positive 721672010 Z32.01 Risk factors addressed: Tobacco Cessation, Safe Sexual Practices, environmen vincent, work hazards, travel restrictio ns, seat belt use.Eat a health well balanced diet, avoid alcohol, tobacco, and street drugs. Engage in daily low impact exercise, avoid temperatur e extremes, and cat, rodent, and bird feces.Avoi d travel to areas where zika virus is a concern. Genetic screening offered. Pt will schedule first look and let us know if she decides on NIPT or sequential . Agreed to cf/sma. Sequential Screen handout given and discussed with patient. ildbirth classes recommende d.New OB sheet given. Initial bp elevated. Repeat was much improved. Pt has had some elevated bp in the past but feels strongly that it is anxiety related. Baby aspirin daily. If previous , counseling .Pt verbalizes that she understand s the importance of above instructio ns.All questions were answered. Patient reminded to have annual well woman examinatio n and address [facility] . [id number] [address] [facility] [address],[place] [address] 10/11/2021 11:13:52 10/11/2021 11:39:[facility] [id number] [address] [address] 12/06/2020 16:45:09 12/07/2020 08:07:25 [id number] Thanh Barragan MD [facility] [address],[place] [address] 12/07/2020 17:17:35 12/08/2020 16:20:05 Routine care 461253401 Z34.91 [id number] Nallely Holloway [facility] [address],[place] [address] 01/04/2021 16:41:55 01/04/2021 17:53:27 Routine care 828477287 Z34.92 [id number] [facility] [address],[place] [address] 01/04/2021 16:42:33 01/05/2021 08:53:27 [id number] Nallely Holloway [facility] [address],[place] [address] 02/07/2021 09:19:04 02/07/2021 10:39:07 Routine care 410005713 Z34.92 [id number] [address] [address] 02/07/2021 09:18:34 02/07/2021 10:22:17 screening for malformation 585169167 Z36.3 [id number] Nallely Holloway [facility] [address],[place] [address] 03/08/2021 17:18:04 03/12/2021 21:59:04 Routine care 582791844 Z34.92 [id number] Ngozi Carpenter MD [facility] [address],[place] [address] 03/31/2021 11:13:36 03/31/2021 13:26:53 Routine care 121045785 Z34.03 Increased blood pressure 63310242 R03.0 - induced hypertension 25330814 O13.9 [id number] Nallely Holloway [facility] [address],[place] [address] 04/12/2021 17:09:34 04/12/2021 18:39:41 Routine care [id number] Z34.92 [id number] Amber Taveras [facility] [address],[place] [address] 04/17/2021 16:31:37 04/17/2021 17:50:25 Gestational diabetes mellitus class A1 13105158 O24.410 Informed pt of results, explained in depth what the high levels mean, how her body is not processing the sugars correctly and this does rule her in for GDM. Pt states she has no history of DM, only grandfathe r has Type 2 otherwise family history normal. Spoke with patient briefly on the telephone on 04/14/21 about diet changes and how to adjust meals to decrease carbs and increase protein and healthy fats. Advised to continue low sugar, low carb diet, and higher proteins. Reviewed different meal adjustment s and ways to decrease carbs with still getting all of the nutrients she needs. Advised to follow 3 meals a day with snacks in between meals with importance on the bedtime meal. Reviewed nutritiona l label with patient and how to count carbs for each meal. Advised to be conscienti ous of meals and record foods that increase her levels and to avoid those types of foods. Reviewed acceptable drinks for patient and what to avoid. Advised to continue checking blood sugars four times daily fasting and 1 hour after breakfast, lunch, and dinner. All supplies called into pharmacy on file, confirmed with patient. Pt states checks are going well, no problems with equipment, and understand s when to check levels. Advised to continue to record all levels and bring to all appointmen ts from here on out to review with MD. Advised will monitor diet controlled and assess the need for insulin administra tion if levels are trending high without the help of diet. Pt's next appointmen t is 04/28 with SB. SP approved for pt to be once weekly NST, U/S BPP, and OB visits more frequently to monitor mom/baby to ensure healthy and well. Pt chose Fridays as she is off these days. Advised pt if any dates do not work, we can adjust as best as possible to the patients needs. Pt states should not be a problem, but if for any unseen reason she needs to split up appointmen ts she will inform us. NICHOLE paperwork was reviewed with pt here in the office to meet her needs to fulfill these appointmen ts. Discussed with pt in depth follow up hour PP 6 weeks to evaluate the need for PCP to be involved if levels are high. Advised otherwise, if normal PCP will need to follow yearly/angela uribe 2 years to monitor. Discussed risks for baby with this GDM diagnosis and reasons why we manage through diet and testing to monitor more closely. Advised pt if any levels are consistent ly high, or over 170+ to call the office for further assitance and evaluation . Also advised pt if questions arise, or pt needs assistance with GDM diagnosis to call the OB line. Tickler for 2 hour PP GTT added to chart and alert. All questions answered and explained in depth, no further concerns. [id number] M Romel [facility] [address] [address] 04/28/2021 13:47:49 04/28/2021 14:31:58 Gestational diabetes mellitus class A1 19332505 O24.410 Informed pt of results, explained in depth what the high levels mean, how her body is not processing the sugars correctly and this does rule her in for GDM. Pt states she has no history of DM, only grandfathe r has Type 2 otherwise family history normal. Spoke with patient briefly on the telephone on 04/14/21 about diet changes and how to adjust meals to decrease carbs and increase protein and healthy fats. Advised to continue low sugar, low carb diet, and higher proteins. Reviewed different meal adjustment s and ways to decrease carbs with still getting all of the nutrients she needs. Advised to follow 3 meals a day with snacks in between meals with importance on the bedtime meal. Reviewed nutritiona l label with patient and how to count carbs for each meal. Advised to be conscienti ous of meals and record foods that increase her levels and to avoid those types of foods. Reviewed acceptable drinks for patient and what to avoid. Advised to continue checking blood sugars four times daily fasting and 1 hour after breakfast, lunch, and dinner. All supplies called into pharmacy on file, confirmed with patient. Pt states checks are going well, no problems with equipment, and understand s when to check levels. Advised to continue to record all levels and bring to all appointmen ts from here on out to review with MD. Advised will monitor diet controlled and assess the need for insulin administra tion if levels are trending high without the help of diet. Pt's next appointmen t is 04/28 with SB. SP approved for pt to be once weekly NST, U/S BPP, and OB visits more frequently to monitor mom/baby to ensure healthy and well. Pt chose Fridays as she is off these days. Advised pt if any dates do not work, we can adjust as best as possible to the patients needs. Pt states should not be a problem, but if for any unseen reason she needs to split up appointmen ts she will inform us. LAURA paperwork was reviewed with pt here in the office to meet her needs to fulfill these appointmen ts. Discussed with pt in depth follow up hour PP 6 weeks to evaluate the need for PCP to be involved if levels are high. Advised otherwise, if normal PCP will need to follow yearly/angela ry 2 years to monitor. Discussed risks for baby with this GDM diagnosis and reasons why we manage through diet and testing to monitor more closely. Advised pt if any levels are consistent ly high, or over 170+ to call the office for further assitance and evaluation . Also advised pt if questions arise, or pt needs assistance with GDM diagnosis to call the OB line. Tickler for 2 hour PP GTT added to chart and alert. All questions answered and explained in depth, no further concerns. [id number] Thanh Barragan MD [facility] [address] [address] 04/28/2021 13:48:11 04/28/2021 15:33:07 Routine care [id number] Z34.91 [id number] Renee Haley [facility] [address] [address] 04/28/2021 13:48:24 04/28/2021 15:57:11 Gestational diabetes mellitus class A1 [id number] O24.410 O36.8330 Z3A.32 Informed pt of results, explained in depth what the high levels mean, how her body is not processing the sugars correctly and this does rule her in for GDM. Pt states she has no history of DM, only grandfathe r has Type 2 otherwise family history normal. Spoke with patient briefly on the telephone on 04/14/21 about diet changes and how to adjust meals to decrease carbs and increase protein and healthy fats. Advised to continue low sugar, low carb diet, and higher proteins. Reviewed different meal adjustment s and ways to decrease carbs with still getting all of the nutrients she needs. Advised to follow 3 meals a day with snacks in between meals with importance on the bedtime meal. Reviewed nutritiona l label with patient and how to count carbs for each meal. Advised to be conscienti ous of meals and record foods that increase her levels and to avoid those types of foods. Reviewed acceptable drinks for patient and what to avoid. Advised to continue checking blood sugars four times daily fasting and 1 hour after breakfast, lunch, and dinner. All supplies called into pharmacy on file, confirmed with patient. Pt states checks are going well, no problems with equipment, and understand s when to check levels. Advised to continue to record all levels and bring to all appointmen ts from here on out to review with MD. Advised will monitor diet controlled and assess the need for insulin administra tion if levels are trending high without the help of diet. Pt's next appointmen t is 04/28 with SB. SP approved for pt to be once weekly NST, U/S BPP, and OB visits more frequently to monitor mom/baby to ensure healthy and well. Pt chose Fridays as she is off these days. Advised pt if any dates do not work, we can adjust as best as possible to the patients needs. Pt states should not be a problem, but if for any unseen reason she needs to split up appointmen ts she will inform us. FMLA paperwork was reviewed with pt here in the office to meet her needs to fulfill these appointmen ts. Discussed with pt in depth follow up hour PP 6 weeks to evaluate the need for PCP to be involved if levels are high. Advised otherwise, if normal PCP will need to follow yearly/angela ry 2 years to monitor. Discussed risks for baby with this GDM diagnosis and reasons why we manage through diet and testing to monitor more closely. Advised pt if any levels are consistent ly high, or over 170+ to call the office for further assitance and evaluation . Also advised pt if questions arise, or pt needs assistance with GDM diagnosis to call the OB line. Tickler for 2 hour PP GTT added to chart and alert. All questions answered and explained in depth, no further concerns. [id number] Germania Orourke [facility] [address],[place] [address] 05/05/2021 10:40:34 05/05/2021 12:05:48 Gestational diabetes mellitus class A1 [id number] O24.410 O36.8330 Z3A.32 [id number] [facility] [address],[place] [address] 05/05/2021 10:41:08 05/05/2021 11:21:39 Gestational diabetes mellitus class A1 [id number] O24.410 [id number] Ngozi Carpenter MD [facility] [address],[place] [address] 05/05/2021 10:41:35 05/05/2021 14:25:42 Gestational diabetes mellitus class A1 19361892 O24.410 Routine an tenatal care [id number] Z34.03 [id number] Nallely Holloway CNM [facility] [address],[place] [address] 05/12/2021 11:37:29 05/12/2021 13:15:56 Routine care 030122011 Z34.92 [id number] [facility] [address],[place] [address] 05/12/2021 11:35:55 05/12/2021 12:07:58 Gestational diabetes mellitus class A1 [id number] O24.410 [id number] [facility] [address],[place] [address] 05/12/2021 11:37:07 05/12/2021 14:04:39 Gestational diabetes mellitus 39196913 O24.410 Z3A.34 [id number] Nallely Holloway [facility] [address],[place] [address] 05/19/2021 09:29:31 05/19/2021 11:04:22 Routine care [id number] Z34.92 [id number] [facility] [address],[place] [address] 05/19/2021 09:29:04 05/19/2021 10:01:40 Gestational diabetes mellitus class A1 53512654 O24.410 [id number] [facility] [address],[place] [address] 05/19/2021 09:29:21 05/19/2021 10:28:56 Gestational diabetes mellitus 01708866 O24.410 Z3A.35 [id number] Nallely Holloway [facility] [address],[place] [address] 05/26/2021 10:26:59 05/26/2021 12:32:21 Routine care [id number] Z34.92 [id number] [facility] [address],[place] [address] 05/26/2021 10:26:13 05/26/2021 11:01:59 Gestational diabetes mellitus class A1 [id number] O24.410 [id number] [facility] [address],[place] [address] 05/26/2021 10:26:38 05/26/2021 13:22:28 Gestational diabetes mellitus 17719966 O24.410 Z3A.36 [id number] Nallely Holloway [facility] [address],[place] [address] 06/02/2021 13:52:10 06/02/2021 15:20:56 Routine care [id number] Z34.92 [id number] [facility] [address],[place] [address] 06/02/2021 13:50:38 06/02/2021 14:33:53 Gestational diabetes mellitus class A1 [id number] O24.410 [id number] [facility] [address],[place] [address] 06/02/2021 13:51:34 06/02/2021 14:51:07 Gestational diabetes mellitus 63795632 O24.410 Z3A.37 [id number] [facility] [address],[place] [address] 06/09/2021 09:18:21 06/09/2021 11:35:47 Routine care [id number] Z34.92 [id number] [facility] [address],[place] [address] 06/09/2021 09:19:32 06/09/2021 10:14:21 Gestational diabetes mellitus class A1 [id number] O24.410 [id number] [facility] [address],[place] [address] 06/09/2021 09:20:12 06/09/2021 10:24:43 Gestational diabetes mellitus 52907068 O24.410 Z3A.38 O36.5930 Small for gestational age fetus 655690165 O36.5930 [id number] Nallely Holloway [facility] [address],[place] [address] 06/21/2021 11:52:52 06/21/2021 12:10:09 -induced hypertension 45836480 O13.9 [id number] [facility] [address],[place] [address] 07/11/2021 10:42:05 07/11/2021 11:14:18 care [id number] Z39.2 start slynd on saturday give one month for effectiven ess - induced hypertension [id number] O13.9 check bp one week if elevated call, [plan 3 month med check and bp follow up [id number] [facility] [address],[place] [address] 08/29/2022 14:49:58 08/29/2022 15:21:55 Gynecologic examination [id number] Z01.419 [id number] Thanh Barragan MD [employer] [address],[place] [address] 10/11/2023 15:10:12 10/11/2023 15:48:40 Gynecologic examination [id number] Z01.419 Annual gynecologi reema exam performed. Patient will come back in a year unless there are new symptoms. Suggest Calcium with Vitamin D if not eating in diet. Patient advised to get annual flu shot. Recommend yearly physicals and preform monthly breast exams. Genetic testing is available for patients with family history of cancer. Engage in safe sexual practices, use condoms. Encouraged to have daily exercise. Avoid tobacco and illicit drugs, moderation of alcohol. If BMI greater than 25 dietary consult advised. If you have any questions please call or email. Pap smear- declined laboratory evaluation -done [id number] Amber Gipson [employer] [address],[place] [address] 11/06/2024 15:19:22 11/06/2024 16:08:32 [id number] [facility] [address] [place] [address] 11/06/2024 15:19:43 11/06/2024 16:23:34 [id number] Renee Haley [employer] [address] [place] [address] 12/16/2024 14:49:31 12/16/2024 15:33:02 screening [id number] Z36.82 Z3A.13 [id number] Nallely Holloway CNM [employer] [address] [place] [address] 12/16/2024 14:50:41 12/18/2024 05:59:41 Gestation period, 13 weeks [id number] Z3A.13 Routine an tenatal care [id number] Z34.92 [id number] Nallely Holloway [facility] [address],[place] [address] 12/18/2024 14:50:48 12/18/2024 15:35:48 Atypical squamous cells of undetermined significance on cervical Papanicolaou smear [id number] R87.610 f/u pap Human gracie llomavirus deoxyribonucleic acid detected, high risk on cervical specimen [id number] R87.810 [id number] Nallely Holloway [facility] [address],[place] [address] 01/13/2025 15:50:08 01/13/2025 16:31:06 Gestation period, 16 weeks [id number] Z3A.16 Anxiety 56221566 F41.9 if any suicidal thoughts to ED, se risks and benefits reviewed f/u 4 weeks anatomy scan [id number] [facility] [address],[place] [address] 02/03/2025 15:48:35 02/03/2025 17:03:16 screening for malformation [id number] Z36.3 Z3A.19 [id number] Nallely Holloway [facility] [address],[place] [address] 02/03/2025 15:48:55 02/03/2025 17:28:49 Gestation period, 19 weeks [id number] Z3A.19 [id number] Nallely Holloway [facility] [address],[place] [address] 03/03/2025 16:27:01 03/04/2025 02:38:24 Gestation period, 23 weeks [id number] Z3A.23 Health Concerns Section Related Observation LastModified by Organization Detai ls LastModified Time None Recorded Concern Status LastModified by Organization Details LastModified Time None Recorded Advance Directives Directive None Recorded Payers Encounter Date Sequence Insurance Name Policy Number Policy Romero Covered Member ID Romero Member ID Guarantor Name 12/18/2024 1 [place] [id number] Stan D Adalberto [id number] 28 Rosalie Adalberto 01/13/2025 1 [place] [id number] Stan D Adalberto [id number] 28 Rosalie Adalberto 02/03/2025 1 [place] [id number] Stan D Adalberto [id number] 28 Rosalie Adalberto 02/03/2025 1 [place] [id number] Stan D Adalberto [id number] 28 Rosalie Adalberto 03/03/2025 1 [place] [id number] Stan D Adalberto [id number] 28 Rosalie Adalberto OBGyn Episode Ob Episode Information Episode Created Date Number of Fetuses Patient Bloodtype Patient rh Status Prepregnancy Weight lbs Domestic Partner Domestic Partner Phone Father Name Upholstery Tech Status 11/14/20 20 1 CLOSED Fetus Data First Name Last Name Admitted to NICU Weight (g) Sex Living Outcome Pediatric Complications Fetus ID Race Codes Race Delivery Type , Spontane ous [id number] Vinny Calculation Initial Vinny Date Initial Exam Date Initial Exam Provider Initial Ultrasound Date Last Menstrual Period Date Ultra Sound Weeks Gestation 0 Eighteen To Twenty Week Vinny Update Ultra Sound Date Fundal Height At Umbil Quickening Date Ultra Sound Latest Weeks Gestation Final Vinny Confirmed By Final Vinny Confirmed Date Final Vinny Date Ultra Sound Latest Days Gestation 0 0 Menstrual History Last Menstrual Date Menses Monthly On Bcp Conception Prior Menses Frequency Hcg Plus Date Menarche Onset Age Delivery Information Delivery Date Delivery Type Labor Anesthesia Weeks Gestation Incision Type Labor Labor Length Hrs Delivered By Post Complications Tubal Sterilization Discharge Date Comments 9 Chemical Discharge Information Feeding Method Contraceptive Method Maternal HG B and HCT Levels Ob Episode Information Episode Created Date Number of Fetuses Patient Bloodtype Patient rh Status Prepregnancy Weight lbs Domestic Partner Domestic Partner Phone Father Name Upholstery Tech Status 12/07/19 21 1 O Positive 144 CLOSED Fetus Data First Name Last Name Admitted to NICU Weight (g) Sex Living Outcome Pediatric Complications Fetus ID Race Codes Race Delivery Type 2976.69 75 M true Full Term 7101 Vaginal Delivery Problems Problem Notes Pt declined genetic testing Problem Name Start Date End Date Resolution Snomed Code Not e Idiopathic urticaria [id number] Elevated blood-pressure reading without diagnosis of hypertension [id number] very anxious in office. will check at home Gestational diabetes mellitus 04/14/2021 [id number] ruled in per SP Vinny Calculation Initial Vinny Date Initial Exam Date Initial Exam Provider Initial Ultrasound Date Last Menstrual Period Date Ultra Sound Weeks Gestation 06/18/2021 12/07/2020 11/14/2020 09/11/2020 8 Eighteen To Twenty Week Vinny Update Ultra Sound Date Fundal Height At Umbil Quickening Date Ultra Sound Latest Weeks Gestation Final Vinny Confirmed By Final Vinny Confirmed Date Final Vinny Date Ultra Sound Latest Days Gestation 0 [email or web address] 12/07/2020 06/18/20 21 0 Pre-cyndi Flowsheet Flowsheet Date 11/14/2020 Navarro Score Blood Edema Fundus Height Fundus Units Glucose Ketones Leukocytes Nitrite Labor Signs Protein Cervic Dilation Cervic Effacement Cervic Station Type Weight in lbs Pre/Post Dialysis Refused BP Diastolic BP Location Tested BP Systolic BP Type Fetus Heart Rate Present Fetus Movement Comments Flowsheet Date 12/06/2020 Navarro Score Blood Edema Fundus Height Fundus Units Glucose Ketones Leukocytes Nitrite Labor Signs Protein Cervic Dilation Cervic Effacement Cervic Station Type Weight in lbs Pre/Post Dialysis Refused BP Diastolic BP Location Tested BP Systolic BP Type Fetus Heart Rate Present Fetus Movement Comments Flowsheet Date 12/07/2020 Navarro Score Blood Edema Fundus Height Fundus Units Glucose Ketones Leukocytes Nitrite Labor Signs Protein Cervic Dilation Cervic Effacement Cervic Station Type Weight in lbs Pre/Post Dialysis Refused Weight 146.179775812723 BP Diastolic BP Location Tested BP Systolic BP Type 83 R arm 135 sitting Fetus Heart Rate Present Fetus Movement Comments this patient is a 25-year-ol d 2 para 0 at 12 weeks gestation who presents for initial care. She has an unremarkable medical, surgical, obstetric history. She recently had some hives after hot showers. She was given some instructions to use non drowsy antihistamines daily. She is also instructed to use Benadryl or Benadryl cream. To begin routine care. Flowsheet Date 01/04/2021 Navarro Score Blood Edema Fundus Height Fundus Units Glucose Ketones Leukocytes Nitrite Labor Signs Protein Cervic Dilation Cervic Effacement Cervic Station Type Weight in lbs Pre/Post Dialysis Refused BP Diastolic BP Location Tested BP Systolic BP Type Fetus Heart Rate Present Fetus Movement Comments Flowsheet Date 01/04/2021 Navarro Score Blood Edema Fundus Height Fundus Units Glucose Ketones Leukocytes Nitrite Labor Signs Protein Cervic Dilation Cervic Effacement Cervic Station neg none trace Type Weight in lbs Pre/Post Dialysis Refused Weight 143.276621822703 BP Diastolic BP Location Tested BP Systolic BP Type 82 122 Fetus Heart Rate Present Fetus Movement A Yes Comments patient states that is havin g pelvic pain and nausea and vomiting, precautions reviewed, gender reveal boyGregorio f/u 4 week anatomy scan Flowsheet Date 02/07/2021 Navarro Score Blood Edema Fundus Height Fundus Units Glucose Ketones Leukocytes Nitrite Labor Signs Protein Cervic Dilation Cervic Effacement Cervic Station Type Weight in lbs Pre/Post Dialysis Refused BP Diastolic BP Location Tested BP Systolic BP Type Fetus Heart Rate Present Fetus Movement Comments Flowsheet Date 02/07/2021 Navarro Score Blood Edema Fundus Height Fundus Units Glucose Ketones Leukocytes Nitrite Labor Signs Protein Cervic Dilation Cervic Effacement Cervic Station neg none trace Type Weight in lbs Pre/Post Dialysis Refused Weight 147.085608351201 BP Diastolic BP Location Tested BP Systolic BP Type 75 107 Fetus Heart Rate Present Fetus Movement A Yes Comments patient is having cramping, constipation issues and discharge, doing well anatomy scan complete, f/u 4 weeks Flowsheet Date 03/08/2021 Navarro Score Blood Edema Fundus Height Fundus Units Glucose Ketones Leukocytes Nitrite Labor Signs Protein Cervic Dilation Cervic Effacement Cervic Station neg trace 25 trace Type Weight in lbs Pre/Post Dialysis Refused Weight 157.520461109928 BP Diastolic BP Location Tested BP Systolic BP Type 86 136 Fetus Heart Rate Present A 144 Fetus Movement A Yes Comments PATIENT IS HAVING SOME CONST IPATION AND SWELLING, reviewed precautions, doing well plan gct Flowsheet Date 03/31/2021 Navarro Score Blood Edema Fundus Height Fundus Units Glucose Ketones Leukocytes Nitrite Labor Signs Protein Cervic Dilation Cervic Effacement Cervic Station neg trace 30 trace Type Weight in lbs Pre/Post Dialysis Refused Weight 166.045502704430 BP Diastolic BP Location Tested BP Systolic BP Type 94 151 88 150 80 140 Fetus Heart Rate Present A 150 Fetus Movement A Yes Comments Doing ok. COnstipation resol timmy. Extremely nervous about GCT and blood draw- BPs elevated. Denies BORGES/BV/EP. Will do PIH labs with 28 week labs. Flowsheet Date 04/04/2021 Navarro Score Blood Edema Fundus Height Fundus Units Glucose Ketones Leukocytes Nitrite Labor Signs Protein Cervic Dilation Cervic Effacement Cervic Station Type Weight in lbs Pre/Post Dialysis Refused BP Diastolic BP Location Tested BP Systolic BP Type 68 R arm 124 sitting Fetus Heart Rate Present Fetus Movement Comments Flowsheet Date 04/12/2021 Navarro Score Blood Edema Fundus Height Fundus Units Glucose Ketones Leukocytes Nitrite Labor Signs Protein Cervic Dilation Cervic Effacement Cervic Station neg none 29 trace Type Weight in lbs Pre/Post Dialysis Refused Weight 168.512894325681 BP Diastolic BP Location Tested BP Systolic BP Type 80 117 Fetus Heart Rate Present A 155 Fetus Movement A Yes Comments PATIENT IS HAVING CRAMPING A ND NAUSEA, bs all wnl, discussed PTL precautions, f/u 4 weeks growth and blood sugars, if wnl at that time may space them out Flowsheet Date 04/17/2021 Navarro Score Blood Edema Fundus Height Fundus Units Glucose Ketones Leukocytes Nitrite Labor Signs Protein Cervic Dilation Cervic Effacement Cervic Station Type Weight in lbs Pre/Post Dialysis Refused BP Diastolic BP Location Tested BP Systolic BP Type Fetus Heart Rate Present Fetus Movement Comments Flowsheet Date 04/28/2021 Navarro Score Blood Edema Fundus Height Fundus Units Glucose Ketones Leukocytes Nitrite Labor Signs Protein Cervic Dilation Cervic Effacement Cervic Station Type Weight in lbs Pre/Post Dialysis Refused BP Diastolic BP Location Tested BP Systolic BP Type Fetus Heart Rate Present Fetus Movement Comments Flowsheet Date 04/28/2021 Navarro Score Blood Edema Fundus Height Fundus Units Glucose Ketones Leukocytes Nitrite Labor Signs Protein Cervic Dilation Cervic Effacement Cervic Station 35 trace Type Weight in lbs Pre/Post Dialysis Refused Weight 167.207790587335 BP Diastolic BP Location Tested BP Systolic BP Type 89 R arm 137 sitting Fetus Heart Rate Present A 145 Fetus Movement A Yes Comments Excellent glycemic control, reasonable blood pressures, to have ultrasound today. Flowsheet Date 04/28/2021 Navarro Score Blood Edema Fundus Height Fundus Units Glucose Ketones Leukocytes Nitrite Labor Signs Protein Cervic Dilation Cervic Effacement Cervic Station Type Weight in lbs Pre/Post Dialysis Refused BP Diastolic BP Location Tested BP Systolic BP Type Fetus Heart Rate Present Fetus Movement Comments Flowsheet Date 05/05/2021 Navarro Score Blood Edema Fundus Height Fundus Units Glucose Ketones Leukocytes Nitrite Labor Signs Protein Cervic Dilation Cervic Effacement Cervic Station Type Weight in lbs Pre/Post Dialysis Refused BP Diastolic BP Location Tested BP Systolic BP Type Fetus Heart Rate Present Fetus Movement Comments Flowsheet Date 05/05/2021 Navarro Score Blood Edema Fundus Height Fundus Units Glucose Ketones Leukocytes Nitrite Labor Signs Protein Cervic Dilation Cervic Effacement Cervic Station Type Weight in lbs Pre/Post Dialysis Refused BP Diastolic BP Location Tested BP Systolic BP Type Fetus Heart Rate Present Fetus Movement Comments Flowsheet Date 05/05/2021 Navarro Score Blood Edema Fundus Height Fundus Units Glucose Ketones Leukocytes Nitrite Labor Signs Protein Cervic Dilation Cervic Effacement Cervic Station neg trace 34 trace Type Weight in lbs Pre/Post Dialysis Refused Weight 167.690074244351 BP Diastolic BP Location Tested BP Systolic BP Type 84 127 Fetus Heart Rate Present A 140 Fetus Movement A Yes Comments Doing well. NST reactive. BS perfect. Flowsheet Date 05/12/2021 Navarro Score Blood Edema Fundus Height Fundus Units Glucose Ketones Leukocytes Nitrite Labor Signs Protein Cervic Dilation Cervic Effacement Cervic Station Type Weight in lbs Pre/Post Dialysis Refused BP Diastolic BP Location Tested BP Systolic BP Type 81 121 Fetus Heart Rate Present Fetus Movement Comments Flowsheet Date 05/12/2021 Navarro Score Blood Edema Fundus Height Fundus Units Glucose Ketones Leukocytes Nitrite Labor Signs Protein Cervic Dilation Cervic Effacement Cervic Station Type Weight in lbs Pre/Post Dialysis Refused BP Diastolic BP Location Tested BP Systolic BP Type Fetus Heart Rate Present Fetus Movement Comments Flowsheet Date 05/12/2021 Navarro Score Blood Edema Fundus Height Fundus Units Glucose Ketones Leukocytes Nitrite Labor Signs Protein Cervic Dilation Cervic Effacement Cervic Station Type Weight in lbs Pre/Post Dialysis Refused Weight 169.383321640749 BP Diastolic BP Location Tested BP Systolic BP Type 81 121 Fetus Heart Rate Present Fetus Movement Comments doing well, reviewed blood s ugars, cont diet controlled, make preadmit at hospital, precautions reviewed NST R Flowsheet Date 05/19/2021 Navarro Score Blood Edema Fundus Height Fundus Units Glucose Ketones Leukocytes Nitrite Labor Signs Protein Cervic Dilation Cervic Effacement Cervic Station Type Weight in lbs Pre/Post Dialysis Refused BP Diastolic BP Location Tested BP Systolic BP Type Fetus Heart Rate Present Fetus Movement Comments Flowsheet Date 05/19/2021 Navarro Score Blood Edema Fundus Height Fundus Units Glucose Ketones Leukocytes Nitrite Labor Signs Protein Cervic Dilation Cervic Effacement Cervic Station Type Weight in lbs Pre/Post Dialysis Refused BP Diastolic BP Location Tested BP Systolic BP Type Fetus Heart Rate Present Fetus Movement Comments Flowsheet Date 05/19/2021 Navarro Score Blood Edema Fundus Height Fundus Units Glucose Ketones Leukocytes Nitrite Labor Signs Protein Cervic Dilation Cervic Effacement Cervic Station neg trace trace Type Weight in lbs Pre/Post Dialysis Refused Weight 169.171653998015 BP Diastolic BP Location Tested BP Systolic BP Type 87 130 Fetus Heart Rate Present Fetus Movement A Yes Comments patient is having cramping a nd contractions and swelling., reviewed precautions cervix soft, outer os 1 cm inner closed, gbs done reviewed blood sugars all wnl, nst R and growth 21% Flowsheet Date 05/26/2021 Navarro Score Blood Edema Fundus Height Fundus Units Glucose Ketones Leukocytes Nitrite Labor Signs Protein Cervic Dilation Cervic Effacement Cervic Station Type Weight in lbs Pre/Post Dialysis Refused BP Diastolic BP Location Tested BP Systolic BP Type Fetus Heart Rate Present Fetus Movement Comments Flowsheet Date 05/26/2021 Navarro Score Blood Edema Fundus Height Fundus Units Glucose Ketones Leukocytes Nitrite Labor Signs Protein Cervic Dilation Cervic Effacement Cervic Station Type Weight in lbs Pre/Post Dialysis Refused BP Diastolic BP Location Tested BP Systolic BP Type Fetus Heart Rate Present Fetus Movement Comments Flowsheet Date 05/26/2021 Navarro Score Blood Edema Fundus Height Fundus Units Glucose Ketones Leukocytes Nitrite Labor Signs Protein Cervic Dilation Cervic Effacement Cervic Station neg none trace 1cm 50% -3 Type Weight in lbs Pre/Post Dialysis Refused Weight 170.609842065762 BP Diastolic BP Location Tested BP Systolic BP Type 88 124 Fetus Heart Rate Present Fetus Movement A Yes Comments BPP 8/10, doing well, precau tions reviewed, blood sugars reviewed, cont diet controlled Flowsheet Date 06/02/2021 Navarro Score Blood Edema Fundus Height Fundus Units Glucose Ketones Leukocytes Nitrite Labor Signs Protein Cervic Dilation Cervic Effacement Cervic Station Type Weight in lbs Pre/Post Dialysis Refused BP Diastolic BP Location Tested BP Systolic BP Type Fetus Heart Rate Present Fetus Movement Comments Flowsheet Date 06/02/2021 Navarro Score Blood Edema Fundus Height Fundus Units Glucose Ketones Leukocytes Nitrite Labor Signs Protein Cervic Dilation Cervic Effacement Cervic Station Type Weight in lbs Pre/Post Dialysis Refused BP Diastolic BP Location Tested BP Systolic BP Type Fetus Heart Rate Present Fetus Movement Comments Flowsheet Date 06/02/2021 Navarro Score Blood Edema Fundus Height Fundus Units Glucose Ketones Leukocytes Nitrite Labor Signs Protein Cervic Dilation Cervic Effacement Cervic Station neg none trace Type Weight in lbs Pre/Post Dialysis Refused Weight 171.106551355804 BP Diastolic BP Location Tested BP Systolic BP Type 81 121 Fetus Heart Rate Present Fetus Movement A Yes Comments patient states that having b ack pain, contractions, and had some spotting after being check last week. declined check today bpp 8/8precautions reviewed Flowsheet Date 06/09/2021 Navarro Score Blood Edema Fundus Height Fundus Units Glucose Ketones Leukocytes Nitrite Labor Signs Protein Cervic Dilation Cervic Effacement Cervic Station Type Weight in lbs Pre/Post Dialysis Refused BP Diastolic BP Location Tested BP Systolic BP Type Fetus Heart Rate Present Fetus Movement Comments Flowsheet Date 06/09/2021 Navarro Score Blood Edema Fundus Height Fundus Units Glucose Ketones Leukocytes Nitrite Labor Signs Protein Cervic Dilation Cervic Effacement Cervic Station Type Weight in lbs Pre/Post Dialysis Refused BP Diastolic BP Location Tested BP Systolic BP Type Fetus Heart Rate Present Fetus Movement Comments Flowsheet Date 06/09/2021 Navarro Score Blood Edema Fundus Height Fundus Units Glucose Ketones Leukocytes Nitrite Labor Signs Protein Cervic Dilation Cervic Effacement Cervic Station neg none trace Type Weight in lbs Pre/Post Dialysis Refused Weight 173.024631373774 BP Diastolic BP Location Tested BP Systolic BP Type 88 130 Fetus Heart Rate Present Fetus Movement A Yes Comments patient states that having s ome contractions, discharge and nausea. NST R BPP 8/8 blood sugars wnl, MIL scheduled next week GDM Menstrual History Last Menstrual Date Menses Monthly On Bcp Conception Prior Menses Frequency Hcg Plus Date Menarche Onset Age 1009/11/2020 Genetic Screening And Infection History Question Response Note Mental Retardation/Autism false Patient's Age Will Be 35 Years Or Older At Estim ated Date of Delivery false Thalassemia (Cuban, Welsh, Mediterranean, Or Background): MCV < 80 false Neural Tube Defect (Meningomyelocele, Spina Bifi da, Or Anencephaly) false Congenital Heart Defect false Down Syndrome false Cameron-Sachs (eg, Christian, Cajun, Palestinian-[place]) f alse Lani Disease false Sickle Cell Disease Or Trait () false Hemophilia Or Other Blood Disorders false Muscular Dystrophy false Cystic Fibrosis false [place]'s [place] false Intellectual Disability/Autism false If Yes, Was Person Tested For Fragile X? false Other Inherited Genetic Or Chromosomal Disorder false Maternal Metabolic Disorder (eg, Type 1 Diabetes , PKU) false Patient Or Baby's Father Had A Child With Defects Not Listed Above false Recurrent Loss, Or A Stillbirth false Medications (including Suppl ements, Vitamins, Herbs, OTC Drugs), Illicit/Recreational Drugs, Alcohol false If Yes, Agent(s) And Strength/Dosage false Any Other Genetic History false Live With Someone With TB Or Exposed To TB false Patient Or Partner Has History Of Genital Herpes false Rash Or Viral Illness Since Last Menstrual Perio d false History Of STD, Gonorrhea, Chlamydia, HPV, Syphi lis false Other Infection History false History of HIV false History of Hepatitis false Prior GBS-infected child false Hemoglobinopathy Or Carrier false Other Structural Defect false Recent Travel History Outside of Country false Delivery Information Delivery Date Delivery Type Labor Anesthesia Weeks Gestation Incision Type Labor Labor Length Hrs Delivered By Post Complications Tubal Sterilization Discharge Date Comments [facility] idural 39.2 false Nallely Holloway CNLiz GDM Discharge Information Feeding Method Contraceptive Method Maternal HG B and HCT Levels Breast Ob Episode Information Episode Created Date Number of Fetuses Patient Bloodtype Patient rh Status Prepregnancy Weight lbs Domestic Partner Domestic Partner Phone Father Name Upholstery Tech Status 12/16/19 25 1 146 Stan Glover OPEN Fetus Data First Name Last Name Admitted to NICU Weight (g) Sex Living Outcome Pediatric Complications Fetus ID Race Codes Race Delivery Type [id number] Problems Problem Notes ascus pap hpv6/7 coplo sched uled Problem Name Start Date End Date Resolution Snomed Code Not e Maternal history of gestatio nal diabetes [id number] 2020, diet Vinny Calculation Initial Vinny Date Initial Exam Date Initial Exam Provider Initial Ultrasound Date Last Menstrual Period Date Ultra Sound Weeks Gestation 06/26/2025 11/06/2024 Nallely Holloway 11/06/2024 09/15/2024 6 Eighteen To Twenty Week Vinny Update Ultra Sound Date Fundal Height At Umbil Quickening Date Ultra Sound Latest Weeks Gestation Final Vinny Confirmed By Final Vinny Confirmed Date Final Vinny Date Ultra Sound Latest Days Gestation 0 12/16/2024 06/26/20 25 0 Pre- Flowsheet Flowsheet Date 12/16/2024 Navarro Score Blood Edema Fundus Height Fundus Units Glucose Ketones Leukocytes Nitrite Labor Signs Protein Cervic Dilation Cervic Effacement Cervic Station neg none none trace Type Weight in lbs Pre/Post Dialysis Refused Weight 145.393513434322 BP Diastolic BP Location Tested BP Systolic BP Type 88 129 Fetus Heart Rate Present A s Fetus Movement A Yes Comments Patient states that having s ome pain, discharge, nausea and vomiting. hx of 1 previous vaginal delivery with diet controlled gdm, education and precautions, begin routine care Flowsheet Date 12/18/2024 Navarro Score Blood Edema Fundus Height Fundus Units Glucose Ketones Leukocytes Nitrite Labor Signs Protein Cervic Dilation Cervic Effacement Cervic Station neg none Type Weight in lbs Pre/Post Dialysis Refused 143.841421541222 BP Diastolic BP Location Tested BP Systolic BP Type 83 121 Fetus Heart Rate Present Fetus Movement A No Comments Patient is here for Colpo fo r abnormal pap history. f/u as scheduled Flowsheet Date 01/13/2025 Navarro Score Blood Edema Fundus Height Fundus Units Glucose Ketones Leukocytes Nitrite Labor Signs Protein Cervic Dilation Cervic Effacement Cervic Station neg none Type Weight in lbs Pre/Post Dialysis Refused [id number] BP Diastolic BP Location Tested BP Systolic BP Type 81 121 Fetus Heart Rate Present A 155 Present Fetus Movement A Yes Comments Patient states that is havin g some pain. anxiety is increasing, was on venlafaxine 75 mg prior to and worked great, will discuss with MD and get back to her today, will start on medication, if any suicidal thoughts to ED, se risks and benefits reviewed f/u 4 weeks anatomy scan Flowsheet Date 02/03/2025 Navarro Score Blood Edema Fundus Height Fundus Units Glucose Ketones Leukocytes Nitrite Labor Signs Protein Cervic Dilation Cervic Effacement Cervic Station Type Weight in lbs Pre/Post Dialysis Refused BP Diastolic BP Location Tested BP Systolic BP Type Fetus Heart Rate Present Fetus Movement Comments Flowsheet Date 02/03/2025 Navarro Score Blood Edema Fundus Height Fundus Units Glucose Ketones Leukocytes Nitrite Labor Signs Protein Cervic Dilation Cervic Effacement Cervic Station neg none Type Weight in lbs Pre/Post Dialysis Refused [id number] BP Diastolic BP Location Tested BP Systolic BP Type 85 125 Fetus Heart Rate Present Fetus Movement A Yes Comments +FM doing well, ok for colac e, aanatomy complete, breech, education and precautions f/u 4 weeks Flowsheet Date 03/03/2025 Navarro Score Blood Edema Fundus Height Fundus Units Glucose Ketones Leukocytes Nitrite Labor Signs Protein Cervic Dilation Cervic Effacement Cervic Station neg none Type Weight in lbs Pre/Post Dialysis Refused Weight [id number] BP Diastolic BP Location Tested BP Systolic BP Type 85 133 Fetus Heart Rate Present Fetus Movement A Yes Comments left breast us, swelling on side of nipple, no mass, cont to monitor, +FM, plan GCT next visit precautions and education Menstrual History Last Menstrual Date Menses Monthly On Bcp Conception Prior Menses Frequency Hcg Plus Date Menarche Onset Age 1009/15/2024 Delivery Information Delivery Date Delivery Type Labor Anesthesia Weeks Gestation Incision Type Labor Labor Length Hrs Delivered By Post Complications Tubal Sterilization Discharge Date Comments Discharge Information Feeding Method Contraceptive Method Maternal HG B and HCT Levels
== END 2025-03-05 09:53 | disposition home or self-care (01) ==
PROVIDERS: PCP Family Medicine; Visit Provider Advanced Practice Midwife
DX: N63.20 Unspecified lump in the left breast, unspecified quadrant (principal)
CPT/HCPCS: 76642

== ENCOUNTER 2025-03-19 11:27 | Observation (INO) | payer BC, SELFPAY ==
--- NOTE | ~2025-03-19 | US_ITS ---
EXAMINATION: US OB limited DATE: 03/19/2025 13:11 INDICATION: Assess cervical length and placenta during the transition from the second and third trime ster of TECHNIQUE: Real-time ultrasound of the pelvis was performed. The interpreting radiologist was not pre sent for the study. COMPARISON: None. FINDINGS: There is a single living fetus in vertex presentation. The placenta is anterior and not low-lying. N ormal cervical length of 4.6 cm. heart rate is 147 beats per minute (bpm). The amniotic fluid v olume is subjectively normal with normal deepest vertical pocket measurement of 6.8 cm. IMPRESSION: 1. Single living fetus in vertex presentation with heart rate of 147 bpm. 2. Normal anterior placenta which is not low-lying and normal cervical length measurement of 4.6 cm. Reviewed, dictated and finalized at location A. IMPRESSION: 1. Single living fetus in vertex presentation with heart rate of 147 bpm . 2. Normal anterior placenta which is not low-lying and normal cervical length m easurement of 4.6 cm.
[2025-03-19 12:55] VITALS: BP 131/82; PULSE 103
[2025-03-19 13:01] LABS: Bacteria Urine None Seen /hpf; Non Pathogenic Casts 0-2; RBC Urine 0-2 /hpf (0-2); Squamous Epithelial Cell Urine Occasional /hpf (Few); WBC Urine 0-5 /hpf (0-3)
[2025-03-19 13:05] LABS: Add Urine Microscopic? YES; Appearance Urine Clear (Clear); Bilirubin Urine Negative (Negative); Blood Urine Negative (Negative); Color Urine Yellow (Yellow); Glucose Urine UA Negative (Negative); Ketones Urine Negative (Negative); Leukocyte Esterase Ur 2+ LEU/UL (Negative); Need Manual Microscopic Reviewed; Nitrate Urine Negative (Negative); Protein Urine Negative (Negative); Specific Grav Ur 1.003 (1.001-1.035); Urobilinogen Urine 0.2 mg/dL (<2.0); pH Urine 7.5 (5.0-9.0)
[2025-03-19 14:09] VITALS: BMI 25.7
--- NOTE | 2025-03-19 14:10 | OBADM ---
This patient, Rosalie Glover, admitted to the OB room OB Post 116 for observation. Patient/family oriented to hospital policies and general routines including ID bracelet, bed and alarms, visiting hours, pain management, procedures, bathroom and other care routines, personal items, smoking policy, room service/diet, and visiting hours. Patient/Family are encouraged to report perceived risks to care and to ask questions if they do not understand what they are told or what they should do.
--- NOTE | 2025-03-23 17:23 | PM.OBTRLD ---
OB - Triage/Final Diagnosis Visit Information Date of evaluation: 03/19/25 Reason for evaluation: other (spotting) Comments/Additional reasons for admission: I have assessed the risk for this patient, Rosalie Glover, and determined that she would benefit from observation care. Evaluation Laboratory results: Laboratory Tests 03/19/25 12:45 Urine Color Yellow Urine Appearance Clear Urine pH 7.5 Ur Specific Mcfaddin 1.003 Urine Protein Negative Urine Glucose (UA) Negative Urine Ketones Negative Ur Blood (Man) Negative Urine Nitrate Negative Urine Bilirubin Negative Urine Urobilinogen 0.2 Add Ur Microanalysis Reviewed Leukocyte Esterase Rfl 2+ H Urine RBC 0-2 Urine WBC 0-5 Ur Squamous Epith Cells Occasional Urine Bacteria None seen Urine Casts 0-2
== END 2025-03-19 14:28 | disposition home or self-care (01) ==
PROVIDERS: Advanced Practice Midwife; Admitting Provider Obstetrics & Gynecology; PCP Family Medicine; Visit Provider Obstetrics & Gynecology
DX: O26.852 Spotting complicating pregnancy, second trimester (principal); Z3A.26 26 weeks gestation of pregnancy
CPT/HCPCS: 76815; 81001; 87086; G0378; G0379

== ENCOUNTER 2025-05-17 12:22 | Outpatient (RCR) | payer BC, SELFPAY ==
--- NOTE | ~2025-05-17 | US_ITS ---
LIMITED OBSTETRIC ULTRASOUND/BIOPHYSICAL PROFILE Ordering provider: Nallely Holloway CNM History: . DFM . Comparison: None. FINDINGS: MATERNAL CERVIX: Not visualized. cm which is normal (normal is equal to or greater than 3.0 cm). PRESENTATION: Vertex. Longitudinal lie. PLACENTAL LOCATION: Anterior No previa. HEART RATE: 152 bpm (normal is between 110 to 160 bpm). AMNIOTIC FLUID INDEX: Largest vertical pocket is 6.8 cm. OTHER: Maternal ovaries not visualized. SCORE: breathing movements: 2 movements: 2 tone: 2 Amniotic fluid volume: 2 Total: 8 IMPRESSION: Normal biophysical profile. Single live fetus of Vertex presentation. Reviewed, dictated and finalized at location A.
--- NOTE | 2025-05-17 13:10 | PC.NURSE ---
pt denies feeling good movement. Sia notified. Reactive tracing with elevated blood pressure. Order received for BPP.
[2025-05-17 13:40] VITALS: BP 138/92; PULSE 88
== END 2025-08-15 23:59 | disposition home or self-care (01) ==
LOC: ANHOBOP 12:22
PROVIDERS: PCP Family Medicine; Visit Provider Advanced Practice Midwife
DX: O36.8130 Decreased fetal movements, third trimester, not applicable or unspecified (principal); Z3A.34 34 weeks gestation of pregnancy
CPT/HCPCS: 59025; 76819

== ENCOUNTER 2025-05-21 00:49 | Observation (INO) | payer BC, SELFPAY ==
[2025-05-21] VITALS (8 sets, daily range): BP systolic 126–150; BP diastolic 88–106; PULSE 84–99; RESP 18; TEMP 36.6; BMI 27.6
--- NOTE | 2025-05-21 01:05 | OBADM ---
This patient, Rosalie Glover, admitted to the OB room Labor/Delivery/Recovery 106 for observation. Patient/family oriented to hospital policies and general routines including ID bracelet, bed and alarms, visiting hours, pain management, procedures, bathroom and other care routines, personal items, smoking policy, room service/diet, and visiting hours. Patient/Family are encouraged to report perceived risks to care and to ask questions if they do not understand what they are told or what they should do.
--- NOTE | 2025-06-13 21:49 | PM.OBTRLD ---
OB - Triage/Final Diagnosis Visit Information Comments/Additional reasons for admission: I have assessed the risk for this patient, Rosalie Glover, and determined that she would benefit from observation care. Final Diagnosis (1) False labor: Code(s): O47.9 - False labor, unspecified Status: Acute
== END 2025-05-21 03:04 | disposition home or self-care (01) ==
LOC: ANHLDR 03:03 → ANHOBOP 05-24 07:31 → ANHLDR 05-24 07:31
PROVIDERS: Admitting Provider Obstetrics & Gynecology; PCP Family Medicine; Visit Provider Obstetrics & Gynecology
DX: O47.03 False labor before 37 completed weeks of gestation, third trimester (principal); Z3A.35 35 weeks gestation of pregnancy
CPT/HCPCS: 99199; G0378; G0379

== ENCOUNTER 2025-05-25 00:04 | Inpatient (IN) | payer BC, SELFPAY ==
[2025-05-25] VITALS (160 sets, daily range): BP systolic 104–174; BP diastolic 66–111; PULSE 62–119; RESP 16–20; TEMP 36.1–37.4; O2SAT 93–100; BMI 27.7
--- OUTSIDE RECORDS SUMMARY | 2025-05-25 00:10 | XMS_ITS | Data Portability ---
Author Organization [facility] [place] [place] Address [address] [place] [address] Care Team Providers Care Metallurgical Technician Name Role Phone AYANNA GREGORY Primary Care Provider [phone] Assessment Encounter Date Assessment Date Assessment LastModified by Organization Details LastModified Time 05/19/2025 05/19/2025 Patient is _35__weeks . Discussed plan. Not available 05/19/2025 12:20:50 Plan of Treatment Reminders Order Date Submit Date Provider Last Modified By Organization Details Last Modified Time Details Appointments INDUCTI ON 2024 12:01A M Nallely Holloway CNM Not available Not available Not available U/S OB > 14 WKS 2024 02:30P M ULTRASOUND Not available Not available Not available NST 2024 03:00P M NST SCHEDULE Not available Not available Not available OB ROUTINE 2024 03:45P M Nallely Holloway CNM Not available Not available Not available U/S OB BPP 2024 02:30P M ULTRASOUND Not available Not available Not available NST 2024 03:00P M NST SCHEDULE Not available Not available Not available OB ROUTINE 2024 03:30P M Nallely Holloway CNM Not available Not available Not available U/S OB BPP 2024 02:30P M ULTRASOUND Not available Not available Not available NST 2024 03:00P M NST SCHEDULE Not available Not available Not available OB ROUTINE 2024 03:30P M Nallely Holloway CNM Not available Not available Not available Lab bile acids, total, serum [address] [facility] (Lab), [address], [place], [address], 05/20/2025 12:16:15 CMP, serum or plasma [address] [facility] (Lab), [address], [place], [address], 05/20/2025 12:16:15 Referral None recorde d. Procedures None recorde d. Surgeries None recorde d. Imaging non-str ess test [address], [address], [place], [address], 05/21/2025 08:09:51 , [facility], biophys ical profile + non-str ess test [address], [address], [place], [address], 05/20/2025 22:54:00 non-str ess test [address], [address], [place], [address], 05/16/2025 20:20:47 , [facility] ic, biophys ical profile + non-str ess test [address], [address], [place], [address], 05/12/2025 18:20:23 Medication Orders None recorde d. Patient TargetsNo targets recorded. Patient InstructionsNo instructions recorded. Reason for Referral None Reported. Results Created Date Observation Date Name Description Value Unit Range Abnormal Flag Note LastModifiedBy Organization Detail LastModifiedTime 04/28/202025 CMP(C OMPRE HENSI VE METAB OLIC PANEL ) sodium 138 mmol/ L 133-14 6 Not Available [facility] (Lab) [address], [place], [address], 04/29/2025 11:07:19 04/28/20 25 04/28/2025 CMP(C OMPRE HENSI VE METAB OLIC PANEL ) potassium 3.9 mmol/ L 3.5-5. 1 Not Available [facility] (Lab) [address], [place], [address], 04/29/2025 11:07:19 04/28/20 25 04/28/2025 CMP(C OMPRE HENSI VE METAB OLIC PANEL ) chloride 105 mmol/ L 98-107 Not Available [facility] (Lab) [address], [place], [address], 04/29/2025 11:07:19 04/28/20 25 04/28/2025 CMP(C OMPRE HENSI VE METAB OLIC PANEL ) carbon dioxide 27 mmol/ L 21-31 Not Available [facility] (Lab) [address], [place], [address], 04/29/2025 11:07:19 04/28/20 25 04/28/2025 CMP(C OMPRE HENSI VE METAB OLIC PANEL ) anion gap 6 mmol/ L 4-13 Not Available [facility] (Lab) [address] [place], [address], 04/29/2025 11:07:19 04/28/20 25 04/28/2025 CMP(C OMPRE HENSI VE METAB OLIC PANEL ) blood urea nitrogen 5 mg/dL 7-25 low Not Available [facility] (Lab) [address] [place], [address], 04/29/2025 11:07:19 04/28/20 25 04/28/2025 CMP(C OMPRE HENSI VE METAB OLIC PANEL ) creatinine 0.54 mg/dL 0.60-1 .30 low Not Available [facility] (Lab) [address], [place], [address], 04/29/2025 11:07:19 04/28/20 25 04/28/2025 CMP(C OMPRE HENSI VE METAB OLIC PANEL ) egfrcr (CKD-epi 2020) >90 mL/mi n/1.7 3_m2 >=60 Not Available [facility] (Lab) [address], [place], [address], 04/29/2025 11:07:19 04/28/20 25 04/28/2025 CMP(C OMPRE HENSI VE METAB OLIC PANEL ) calcium 8.6 mg/dL 8.3-10 .5 Not Available [facility] (Lab) [address], [place], [address], 04/29/2025 11:07:19 04/28/20 25 04/28/2025 CMP(C OMPRE HENSI VE METAB OLIC PANEL ) glucose 59 mg/dL 70-100 low Not Available [facility] (Lab) [address], [place], [address], 04/29/2025 11:07:19 04/28/20 25 04/28/2025 CMP(C OMPRE HENSI VE METAB OLIC PANEL ) protein, total 5.7 g/dL 6.4-8. 3 low Not Available [facility] (Lab) [address], [place], [address], 04/29/2025 11:07:19 04/28/20 25 04/28/2025 CMP(C OMPRE HENSI VE METAB OLIC PANEL ) albumin 3.2 g/dL 3.5-5. 0 low Not Available [facility] (Lab) [address], [place], [address], 04/29/2025 11:07:19 04/28/20 25 04/28/2025 CMP(C OMPRE HENSI VE METAB OLIC PANEL ) ALT 12 units /L 9-43 Not Available [facility] (Lab) [address] [place], [address], 04/29/2025 11:07:19 04/28/20 25 04/28/2025 CMP(C OMPRE HENSI VE METAB OLIC PANEL ) alkaline phosphatase 135 units /L 34-104 high Not Available [facility] (Lab) [address] [place], [address], 04/29/2025 11:07:19 04/28/20 25 04/28/2025 CMP(C OMPRE HENSI VE METAB OLIC PANEL ) AST 16 units /L 13-39 Not Available [facility] (Lab) [address], [place], [address], 04/29/2025 11:07:19 04/28/20 25 04/28/2025 CMP(C OMPRE HENSI VE METAB OLIC PANEL ) bilirubin, total 0.3 mg/dL 0.2-1. 2 Not Available [facility] (Lab) [address] [place], [address], 04/29/2025 11:07:19 04/28/20 25 04/28/2025 BILE ACIDS , TOTAL bile acids, total 10 umol/ L 0-10 Test Perfo rmed by: [facility] [address] [address] Not Available [facility] (Lab) [address] [place], [address], 04/29/2025 11:07:20 05/05/20 25 05/05/2025 CMP(C OMPRE HENSI VE METAB OLIC PANEL ) sodium 138 mmol/ L 133-14 6 Not Available [facility] (Lab) [address] [place], [address], 05/06/2025 13:50:13 05/05/20 25 05/05/2025 CMP(C OMPRE HENSI VE METAB OLIC PANEL ) potassium 3.8 mmol/ L 3.5-5. 1 Not Available [facility] (Lab) [address], [place], [address], 05/06/2025 13:50:13 05/05/20 25 05/05/2025 CMP(C OMPRE HENSI VE METAB OLIC PANEL ) chloride 105 mmol/ L 98-107 Not Available [facility] (Lab) [address], [place], [address], 05/06/2025 13:50:13 05/05/20 25 05/05/2025 CMP(C OMPRE HENSI VE METAB OLIC PANEL ) carbon dioxide 26 mmol/ L 21-31 Not Available [facility] (Lab) [address], [place], [address], 05/06/2025 13:50:13 05/05/20 25 05/05/2025 CMP(C OMPRE HENSI VE METAB OLIC PANEL ) anion gap 7 mmol/ L 4-13 Not Available [facility] (Lab) [address], [place], [address], 05/06/2025 13:50:13 05/05/20 25 05/05/2025 CMP(C OMPRE HENSI VE METAB OLIC PANEL ) blood urea nitrogen 5 mg/dL 7-25 low Not Available [facility] (Lab) [address], [place], [address], 05/06/2025 13:50:13 05/05/20 25 05/05/2025 CMP(C OMPRE HENSI VE METAB OLIC PANEL ) creatinine 0.64 mg/dL 0.60-1 .30 Not Available [facility] (Lab) [address], [place], [address], 05/06/2025 13:50:13 05/05/20 25 05/05/2025 CMP(C OMPRE HENSI VE METAB OLIC PANEL ) egfrcr (CKD-epi 2020) >90 mL/mi n/1.7 3_m2 >=60 Not Available [facility] (Lab) [address] [place], [address], 05/06/2025 13:50:13 05/05/20 25 05/05/2025 CMP(C OMPRE HENSI VE METAB OLIC PANEL ) calcium 8.4 mg/dL 8.3-10 .5 Not Available [facility] (Lab) [address], [place], [address], 05/06/2025 13:50:13 05/05/20 25 05/05/2025 CMP(C OMPRE HENSI VE METAB OLIC PANEL ) glucose 66 mg/dL 70-100 low Not Available [facility] (Lab) [address] [place], [address], 05/06/2025 13:50:13 05/05/20 25 05/05/2025 CMP(C OMPRE HENSI VE METAB OLIC PANEL ) protein, total 5.7 g/dL 6.4-8. 3 low Not Available [facility] (Lab) [address] [place], [address], 05/06/2025 13:50:13 05/05/20 25 05/05/2025 CMP(C OMPRE HENSI VE METAB OLIC PANEL ) albumin 3.2 g/dL 3.5-5. 0 low Not Available [facility] (Lab) [address] [place], [address], 05/06/2025 13:50:13 05/05/20 25 05/05/2025 CMP(C OMPRE HENSI VE METAB OLIC PANEL ) ALT 8 units /L 9-43 low Not Available [facility] (Lab) [address] [place], [address], 05/06/2025 13:50:13 05/05/20 25 05/05/2025 CMP(C OMPRE HENSI VE METAB OLIC PANEL ) alkaline phosphatase 150 units /L 34-104 high Not Available [facility] (Lab) [address] [place], [address], 05/06/2025 13:50:13 05/05/20 25 05/05/2025 CMP(C OMPRE HENSI VE METAB OLIC PANEL ) AST 15 units /L 13-39 Not Available [facility] (Lab) [address], [place], [address], 05/06/2025 13:50:13 05/05/20 25 05/05/2025 CMP(C OMPRE HENSI VE METAB OLIC PANEL ) bilirubin, total 0.2 mg/dL 0.2-1. 2 Not Available [facility] (Lab) [address], [place], [address], 05/06/2025 13:50:13 05/05/20 25 05/05/2025 BILE ACIDS , TOTAL bile acids, total 9 umol/ L 0-10 Test Perfo rmed by: [facility] [address] Not Available [facility] (Lab) [address], [place], [address], 05/06/2025 13:50:14 05/12/20 25 05/12/2025 PROTE IN/CR EATIN INE RATIO , URINE creatinine, urine 28.1 mg/dL R-No refer ence range estab lishe d for this assay Not Available [facility] (Lab) [address], [place], [address], 05/13/2025 11:10:27 05/12/20 25 05/12/2025 PROTE IN/CR EATIN INE RATIO , URINE protein, urine 8 mg/dL R-No refer ence range estab lishe d for this assay Not Available [facility] (Lab) [address], [place], [address], 05/13/2025 11:10:27 05/12/20 25 05/12/2025 PROTE IN/CR EATIN INE RATIO , URINE protein/crea tinine ratio, urine 0.28 . No Refer ence Range avail able for Rando m Urine s. A prote in to creat inine ratio of >=0.1 9 is a good predi ctor of signi fican t prote inuri a. A level of <0.14 can rule out signi fican t prote inuri a. Not Available [facility] (Lab) [address], [place], [address], 05/13/2025 11:10:27 05/12/20 25 05/12/2025 URIC ACID uric acid 3.7 mg/dL 2.3-6. 6 Not Available [facility] (Lab) [address], [place], [address], 05/13/2025 11:10:27 05/12/20 25 05/12/2025 CMP(C OMPRE HENSI VE METAB OLIC PANEL ) sodium 137 mmol/ L 133-14 6 Not Available [facility] (Lab) [address], [place], [address], 05/13/2025 11:10:28 05/12/20 25 05/12/2025 CMP(C OMPRE HENSI VE METAB OLIC PANEL ) potassium 3.8 mmol/ L 3.5-5. 1 Not Available [facility] (Lab) [address], [place], [address], 05/13/2025 11:10:28 05/12/20 25 05/12/2025 CMP(C OMPRE HENSI VE METAB OLIC PANEL ) chloride 105 mmol/ L 98-107 Not Available [facility] (Lab) [address] [place], [address], 05/13/2025 11:10:28 05/12/20 25 05/12/2025 CMP(C OMPRE HENSI VE METAB OLIC PANEL ) carbon dioxide 29 mmol/ L 21-31 Not Available [facility] (Lab) [address] [place], [address], 05/13/2025 11:10:28 05/12/20 25 05/12/2025 CMP(C OMPRE HENSI VE METAB OLIC PANEL ) anion gap 3 mmol/ L 4-13 low Not Available [facility] (Lab) [address], [place], [address], 05/13/2025 11:10:28 05/12/20 25 05/12/2025 CMP(C OMPRE HENSI VE METAB OLIC PANEL ) blood urea nitrogen 8 mg/dL 7-25 Not Available [facility] (Lab) [address], [place], [address], 05/13/2025 11:10:28 05/12/20 25 05/12/2025 CMP(C OMPRE HENSI VE METAB OLIC PANEL ) creatinine 0.76 mg/dL 0.60-1 .30 Not Available [facility] (Lab) [address], [place], [address], 05/13/2025 11:10:28 05/12/20 25 05/12/2025 CMP(C OMPRE HENSI VE METAB OLIC PANEL ) egfrcr (CKD-epi 2020) >90 mL/mi n/1.7 3_m2 >=60 Not Available [facility] (Lab) [address], [place], [address], 05/13/2025 11:10:28 05/12/20 25 05/12/2025 CMP(C OMPRE HENSI VE METAB OLIC PANEL ) calcium 8.7 mg/dL 8.3-10 .5 Not Available [facility] (Lab) [address], [place], [address], 05/13/2025 11:10:28 05/12/20 25 05/12/2025 CMP(C OMPRE HENSI VE METAB OLIC PANEL ) glucose 86 mg/dL 70-100 Not Available [facility] (Lab) [address] [place], [address], 05/13/2025 11:10:28 05/12/20 25 05/12/2025 CMP(C OMPRE HENSI VE METAB OLIC PANEL ) protein, total 5.8 g/dL 6.4-8. 3 low Not Available [facility] (Lab) [address], [place], [address], 05/13/2025 11:10:28 05/12/20 25 05/12/2025 CMP(C OMPRE HENSI VE METAB OLIC PANEL ) albumin 3.2 g/dL 3.5-5. 0 low Not Available [facility] (Lab) [address], [place], [address], 05/13/2025 11:10:28 05/12/20 25 05/12/2025 CMP(C OMPRE HENSI VE METAB OLIC PANEL ) ALT 7 units /L 9-43 low Not Available [facility] (Lab) [address], [place], [address], 05/13/2025 11:10:28 05/12/20 25 05/12/2025 CMP(C OMPRE HENSI VE METAB OLIC PANEL ) alkaline phosphatase 165 units /L 34-104 high Not Available [facility] (Lab) [address], [place], [address], 05/13/2025 11:10:28 05/12/20 25 05/12/2025 CMP(C OMPRE HENSI VE METAB OLIC PANEL ) AST 13 units /L 13-39 Not Available [facility] (Lab) [address], [place], [address], 05/13/2025 11:10:28 05/12/20 25 05/12/2025 CMP(C OMPRE HENSI VE METAB OLIC PANEL ) bilirubin, total 0.3 mg/dL 0.2-1. 2 Not Available [facility] (Lab) [address], [place], [address], 05/13/2025 11:10:28 05/12/20 25 05/12/2025 BILE ACIDS , TOTAL bile acids, total 23 umol/ L 0-10 high Test Perfo rmed by: [facility] [address] [place] [address] Not Available [facility] (Lab) [address] [place], [address], 05/13/2025 11:10:29 05/17/20 25 05/17/2025 PROTE IN, 24 HOUR URINE hours collected 24 h Not Available [facility] (Lab) [address] [place], [address], 05/18/2025 04:59:30 05/17/20 25 05/17/2025 PROTE IN, 24 HOUR URINE total volume [address] [facility] (Lab) [address] [place], [address], 05/18/2025 04:59:30 05/17/20 25 05/17/2025 PROTE IN, 24 HOUR URINE protein, urine 8 mg/dL R-No refer ence range estab lishe d for this assay Not Available [facility] (Lab) [address], [place], [address], 05/18/2025 04:59:30 05/17/20 25 05/17/2025 PROTE IN, 24 HOUR URINE protein, 24H urine 144 mg/24 h 10-150 Not Available [facility] (Lab) [address] [place], [address], 05/18/2025 04:59:30 05/19/20 25 05/19/2025 CMP(C OMPRE HENSI VE METAB OLIC PANEL ) sodium 138 mmol/ L 133-14 6 Not Available [facility] (Lab) [address] [place], [address], 05/20/2025 12:16:14 05/19/20 25 05/19/2025 CMP(C OMPRE HENSI VE METAB OLIC PANEL ) potassium 3.9 mmol/ L 3.5-5. 1 Not Available [facility] (Lab) [address] [place], [address], 05/20/2025 12:16:14 05/19/20 25 05/19/2025 CMP(C OMPRE HENSI VE METAB OLIC PANEL ) chloride 104 mmol/ L 98-107 Not Available [facility] (Lab) [address], [place], [address], 05/20/2025 12:16:14 05/19/20 25 05/19/2025 CMP(C OMPRE HENSI VE METAB OLIC PANEL ) carbon dioxide 25 mmol/ L 21-31 Not Available [facility] (Lab) [address], [place], [address], 05/20/2025 12:16:14 05/19/20 25 05/19/2025 CMP(C OMPRE HENSI VE METAB OLIC PANEL ) anion gap 9 mmol/ L 4-13 Not Available [facility] (Lab) [address], [place], [address], 05/20/2025 12:16:14 05/19/20 25 05/19/2025 CMP(C OMPRE HENSI VE METAB OLIC PANEL ) blood urea nitrogen 6 mg/dL 7-25 low Not Available [facility] (Lab) [address], [place], [address], 05/20/2025 12:16:14 05/19/20 25 05/19/2025 CMP(C OMPRE HENSI VE METAB OLIC PANEL ) creatinine 0.80 mg/dL 0.60-1 .30 Not Available [facility] (Lab) [address], [place], [address], 05/20/2025 12:16:14 05/19/20 25 05/19/2025 CMP(C OMPRE HENSI VE METAB OLIC PANEL ) egfrcr (CKD-epi 2020) >90 mL/mi n/1.7 3_m2 >=60 Not Available [facility] (Lab) [address], [place], [address], 05/20/2025 12:16:14 05/19/20 25 05/19/2025 CMP(C OMPRE HENSI VE METAB OLIC PANEL ) calcium 9.3 mg/dL 8.3-10 .5 Not Available [facility] (Lab) [address], [place], [address], 05/20/2025 12:16:14 05/19/20 25 05/19/2025 CMP(C OMPRE HENSI VE METAB OLIC PANEL ) glucose 55 mg/dL 70-100 low Not Available [facility] (Lab) [address], [place], [address], 05/20/2025 12:16:14 05/19/20 25 05/19/2025 CMP(C OMPRE HENSI VE METAB OLIC PANEL ) protein, total 6.1 g/dL 6.4-8. 3 low Not Available [facility] (Lab) [address] [place], [address], 05/20/2025 12:16:14 05/19/20 25 05/19/2025 CMP(C OMPRE HENSI VE METAB OLIC PANEL ) albumin 3.4 g/dL 3.5-5. 0 low Not Available [facility] (Lab) [address] [place], [address], 05/20/2025 12:16:14 05/19/20 25 05/19/2025 CMP(C OMPRE HENSI VE METAB OLIC PANEL ) ALT 8 units /L 9-43 low Not Available [facility] (Lab) [address] [place], [address], 05/20/2025 12:16:14 05/19/20 25 05/19/2025 CMP(C OMPRE HENSI VE METAB OLIC PANEL ) alkaline phosphatase 193 units /L 34-104 high Not Available [facility] (Lab) [address] [place], [address], 05/20/2025 12:16:14 05/19/20 25 05/19/2025 CMP(C OMPRE HENSI VE METAB OLIC PANEL ) AST 15 units /L 13-39 Not Available [facility] (Lab) [address], [place], [address], 05/20/2025 12:16:14 05/19/20 25 05/19/2025 CMP(C OMPRE HENSI VE METAB OLIC PANEL ) bilirubin, total 0.3 mg/dL 0.2-1. 2 Not Available [facility] (Lab) [address], [place], [address], 05/20/2025 12:16:14 05/19/20 25 05/19/2025 BILE ACIDS , TOTAL bile acids, total 17 umol/ L 0-10 high Test Perfo rmed by: [facility] [address] [address] Not Available [facility] (Lab) [address], [place], [address], 05/20/2025 12:16:15 05/19/2005/19/2025 CULTU RE: GROUP B STREP SCREE N, REFLE X SUSCE PTIBI LITY result report SEE RESULT S BELOW Test: Cultu re: Group B Strep , Refle x Susce ptibi lity ([facility] ) Speci men Sourc e: Vagin a/Rec juany Speci men Type: Vagin al/Re ctal Speci men Date: 2024 1134 Resul t Date: 2024 1358 Resul t Statu s: Final resul t Abnor mal: No Resul ting Lab: [facility] [address] [facility] [address] Tel: CULTU RE ----- ----- ----- --- No Group B strep isola fabiola at 2 days (candace ctive broth enhan cemen t) Not Available [facility] (Lab) [address], [place], [address], 05/22/2025 15:01:43 05/05/20 25 05/05/2025 US, obste tric, follo w-up No observ ation record ed. [email or web address] [place] [address], [place], [address], 05/05/2025 18:29:59 05/05/20 25 05/05/2025 US, obste tric, bioph ysica l profi le + non-s tress test No observ ation record ed. [email or web address] [place] [address], [place], [address], 05/05/2025 18:30:09 05/05/20 25 05/05/2025 US, obste tric, follo w-up No observ ation record ed. MARSHALL [address], [place], [address], 05/11/2025 16:11:46 05/05/20 25 05/05/2025 non-s tress test No observ ation record ed. [place] [address], [place], [address], 05/05/2025 19:27:17 05/05/20 25 05/05/2025 non-s tress test No observ ation record ed. [email or web address] [place] [address], [place], [address], 05/05/2025 19:29:29 05/12/20 25 05/12/2025 US, obste tric, bioph ysica l profi le + non-s tress test No observ ation record ed. [email or web address] [place] [address], [place], [address], 05/12/2025 18:47:35 05/12/20 25 05/12/2025 US, obste tric, bioph ysica l profi le + non-s tress test No observ ation record ed. [email or web address] [address], [place], [address], 05/12/2025 20:56:44 05/15/20 25 05/12/2025 non-s tress test No observ ation record ed. [email or web address] [place] [address], [place], [address], 05/15/2025 08:36:57 05/17/20 25 05/12/2025 non-s tress test No observ ation record ed. [place] [address], [place], [address], 05/17/2025 11:49:31 05/17/20 25 05/17/2025 non-s tress test No observ ation record ed. [place] [address], [place], [address], 05/18/2025 14:43:37 05/17/20 25 05/17/2025 US, obste tric, bioph ysica l profi le + non-s tress test No observ ation record ed. [address], [place], [address], 05/17/2025 15:59:18 05/19/20 25 05/19/2025 US, obste tric, bioph ysica l profi le + non-s tress test No observ ation record ed. [facility] [address], [place], [address], 05/19/2025 11:55:43 05/19/20 25 05/19/2025 US, obste tric, follo w-up No observ ation record ed. [email or web address] [address], [place], [address], 05/21/2025 10:00:05 05/20/2005/20/2025 non-s tress test No observ ation record ed. [place] [address], [place], [address], 05/20/2025 15:01:01 Result Notes None recorded. Problems Name Problem SNOMED Code Status Onset Date Resolution Date Notes Provider Name and Address Organization Details Recorded Time Breast lump 48136203 Completed 201505/19/2021 Lump in breast;R ecorded Elsewher e: No Locat ion: [facility] S ource: [employer] yonny: N Practi ce ID: [id number] lable Time: 01:00:00 PM Iris Baer [facility] 10:45:10 Speciali zed medical examinat ion Completed 201201/04/2021 Gynecolo gical Examinat ion;Tonny rded Elsewher e: No Locat ion: [facility] S ource: [employer] yonny: N Practi ce ID: [id number] [place] lable Time: 03:15:00 PM Iris brown [facility] 17:27:57 Dysmenor douglas [id number] Completed 201301/04/2021 Dysmenor douglas;Rec orded Elsewher e: No Locat ion: [facility] S ource: [employer] yonny: N Practi ce ID: [id number] [place] lable Time: 05:15:00 PM Iris brown [facility] 17:27:23 Pregnanc y test negative [id number] Completed 201801/04/2021 Encounte r for pregnanc y test, result negative ;Recorde d Elsewher e: No Locat ion: [facility] S ource: [employer] y[place]ny: N Practi ce ID: [id number] lable Time: 03:45:00 PM Iris Baer [facility] [address] 17:27:[address] Concept Completed 201601/04/2021 Encounte r for general adult medical exam with abnormal finding; Recorded Elsewher e: No Locat ion: [facility] S ource: EHR Material [employer] yonny: N Practi ce ID: [id number] Zion lable Time: 01:00:00 PM Iris brown [facility] 1 17:27:49 Miscarri age [id number] Completed 201801/04/2021 Complete or unsp spontane ous without complica tion;Rec orded Elsewher e: No Locat ion: [facility] Source: EHR Material [employer] yonny: N Practi ce ID: [id number] Zion lable Time: 06:00:00 PM Iris brown [facility] 1 17:27:[address] Concept Completed 201501/04/2021 Well woman check w/ abnormal finding; Recorded Elsewher e: No [facility] S ource: EHR [employer] yonny: N Practi ce ID: [id number] Zion lable Time: 01:00:00 PM Iris brown [facility] 1 17:27:[address] Concept Completed 201511/14/2020 Encntr for routine child health exam w/o abnormal findings ;Recorde d Elsewher e: No [facility] S ource: EHR [employer] yonny: N Practi ce ID: [id number] Zion lable Time: 01:00:00 PM Lashay Quirino brown [facility] 0 18:00:34 Finding of contents of cervix 574043454 Completed 201801/04/2021 Weeks of gestatio n of pregnanc y not specifie d;Record ed Elsewher e: No Locat ion: [facility] Source: EHR Material [employer] yonny: N Practi ce ID: [id number] Zion lable Time: 06:00:00 PM Iris brown [facility] 1 17:27:25 Screenin g for malignan t neoplasm of cervix Completed 201201/04/2021 Screenin g for malignan t neoplasm s of the cervix;R ecorded Elsewher e: No Locat ion: [facility] S ource: EHR Material [employer] yonny: Leah Huston ce ID: [id number] Zion lable Time: 03:15:00 PM Iris Baer [facility], [facility] 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 1 10:45:13 Pregnanc y 90241602 Completed 202001/04/2021 Iris Baer [facility], [facility] 5 18:04:00 Idiopath ic urticari a 90153949 Completed Roberta Kiravictor [email or web address] kristopher [facility], [facility] 13:38:18 Elevated blood-pr essure reading without diagnosi s of hyperten thang 821130379 Completed very anxious in office. will check at home Roberta summers [facility] 13:38:18 Gestatio nal diabetes mellitus 77415620 Completed 2020 ruled in per SP Roberta summers [facility] 13:38:18 Pregnanc y 71558943 Active 2024 Iris Baer [facility], [facility] 5 18:04:00 Maternal history of gestatio nal diabetes 768466683 Active 2020, diet Nallely Holloway CNM [address], [place], [address], [facility] 12:51:17 Cholesta sis 71447858 Active 2024 Ursodiol 300mg BID delivery 36-37 wk increase d to 500mg bid 05/05 Nallely Holloway CNM [address], [place], [address], [facility] 16:39:04 Problem Notes None recorded. Procedures Surgical History Date Name Laterality Status Provider Name and Address Organization Details Recorded Time 12/18/19 25 Colposcopy completed Nallely Holloway CNM [address], [place], [address], [facility] 12/18/2024 15:30:47 12/18/19 25 [facility] 12/18/2024 15:17:39 12/18/19 25 [facility] 12/18/2024 15:19:17 11/06/20 24 Date of Last Pap Smear completed Iris Baer [facility] 11/06/2024 16:05:02 11/25/19 16 Breast Biopsy completed Stella Briggs [facility] 12/07/2020 17:35:54 11/25/19 08 [facility] 12/27/2024 13:41:45 Imaging Results None recorded. Procedure Notes None recorded. Medical Equipment None Reported. Allergies Allergen ID Allergen Name Allergen Category Reaction Reaction Severity Criticality Documentation Date Start Date Code Code System Note Provider Name and Address Organization Details Recorded Time 66040 codeine medicatio n itching rash Not available Not available Not available 11/11/2020 3870 RxNorm Stella Briggs [facility] [place] - [facility] 3 15:30:01 Medications Name Sig Start [...] Not Available metoclopr amide 5 mg tablet Take 1 tablet 4 times a day by oral route as needed. 12/16 completed Not Available Not Available Not Available ursodiol 300 mg capsule TAKE 1 CAPSULE BY MOUTH TWICE A DAY 2024 active Not Available Not Available Not Avai lable Shyla 0.35 mg tablet take 1 tablet by oral route every day 01/08 completed Prescrib ed Elias e: No Locat ion: [facility] M odify By: an becerra DateTime : 01/07/20 01:00:00 PM Not Available Not Available Not Available ursodiol 500 mg tablet TAKE 1 TABLET BY MOUTH TWICE A DAY active Not Available Not Available No t Available Stool Softener 07/11 completed Not Available Not Available Not Available 10/11 completed Not Available Not Available Not Available Minastrin 24 Fe 1 mg-20 mcg (24)/75 mg (4) chewable tablet TAKE 1 TABLET BY MOUTH EVERY DAY 11/14 completed Prescrib jaime Griffin e: No Locat ion: [facility] M odify By: an becerra DateTime : [...] every day by oral route. 08/29 completed [facility] 0642-747 0-02 Lot [id number] Exp 11/2023 Not Available Not Available Not Available Vitals Date Recorded Body height Body mass index (BMI) Body weight Body height Body mass index (BMI) Body weight Systolic blood pressure Diastolic blood pressure Systolic blood pressure Diastolic blood pressure Provider Name and Address Organization Details Last Updated DateTime 5 172.72 cm 26 kg/m2 60021.3 g 172.72 cm 26 kg/m2 06376.3 g 132 mm[Hg] 92 mm[Hg] 132 mm[Hg] 92 mm[Hg] Iris Baer [facility] 5 08:32:33 Date Recorded Body height Body mass index (BMI) Body weight Systolic blood pressure Diastolic blood pressure Provider Name and Address Organization Details Last Updated DateTime 05/19/2025 172.72 cm 26 kg/m2 36920.3 g 139 mm[Hg] 89 mm[Hg] Stella Briggs [facility] 5 12:00:22 Social History Question Answer Notes LastModified by Organizat ion Details LastModified Time Tobacco Smoking Status Never Smoker Lashay brown [facility] 11/14/2020 18:02:42 If You Are , What Was Your Level Of Alcohol Consumption Prior To ? Occasional [email or web address] Information not available 11/06/2024 How Many Years Have You Consumed Alcohol? 3 Information not available 12/07/2020 Are You Blind Or Do You Have Difficulty Seeing? No [email or web address] Information n ot available 02/07/2021 What Is Your Level Of Caffeine Consumption? Occasional [email or web address] Information not available 03/08/2021 In The 14 Days Before Symptom Onset, Have You Had Close Contact With A Laboratory-confirm ed COVID-19 While That Case Was Ill? No [email or web address] Information n ot available 02/07/2021 In The 14 Days Before Symptom Onset, Have You Had Close Contact With A Person Who Is Under Investigation For COVID-19 While That Person Was Ill? No Information not available 02/07/2021 Have You Been To An Area Known To Be High Risk For COVID-19? No [email or web address] Information not available 02/07/2021 Are You Deaf Or Do You Have Serious Difficulty Hearing? No [email or web address] Information not available 02/07/2021 What Type Of Diet Are You Following? REGULAR [email or web address] Information n ot available 02/07/2021 How Many Days Of Moderate To Strenuous Exercise, Like A Brisk Walk, Did You Do In The Last 7 Days? 4 Information not available 12/07/2020 What Was The Date Of Your Most Recent Tobacco Screening? 05/12/2025 [email or web address] Information not available 05/05/2025 Have You Ever Been Counseled For Unhealthy Alcohol Use? No Information not available 12/07/2020 Do You Use Your Seat Belt Or Car Seat Routinely? Yes [email or web address] Information not available 02/07/2021 Do You Have Smoke And Carbon Monoxide Detectors In Your Home? Yes [email or web address] Information not available 02/07/2021 How Much Tobacco Do You Smoke? No Information not available 11/14/2020 Do You Use Sunscreen Routinely? Yes [email or web address] Information not available 02/07/2021 Has Tobacco Cessation Counseling Been Provided? No Information not available 12/07/2020 Do You Have Difficulty Walking Or Climbing Stairs? No [email or web address] Information not available 08/29/2022 How Many Days In The Past Year Have You Consumed 4 Or More Drinks? 0 Information not available 12/07/2020 Sex: Unknown Functional Status Question Answer Note LastModified by Organizat ion Details LastModified Time Do you use any illicit or recreational drugs? No Information not available 12/07/2020 Do you or have you ever used any other forms of tobacco or nicotine? No Information not available 12/07/2020 What is your level of alcohol consumption? None [email or web address] Information not available 11/06/2024 Do you or have you ever used smokeless tobacco? Never used smokeless tobacco [email or web address] Information not available 11/14/2020 Are you able to walk? YESWOREST [email or web address] Information not available 02/07/2021 Are you able to care for yourself? Yes [email or web address] Information not available 08/29/2022 Do you have difficulty dressing or bathing? No [email or web address] Information not available 08/29/2022 Do you or have you ever used e-cigarettes or vape? Never used electronic cigarettes [email or web address] Information not available 11/14/2020 What is your exercise level? Moderate Information not available 12/07/2020 Mental Status Question Answer Note LastModified by Organization D etails LastModified Time Do you feel stressed (tense, restless, nervous, or anxious, or unable to sleep at night)? [id number] [email or web address] Information not available 02/07/2021 Family History Relationship Description Onset Age of this Age Resolved Age Notes LastModified by Organization Details LastModified Time Brother Hypertensive disorder Not available 2020 17:31:27 Maternal Aunt Malignant tumor of breast Not available 2020 17:31:41 Maternal Grandmother Malignant neoplasm of uterus Not available 2020 17:31:55 Maternal Grandmother Malignant neoplasm of lung Not available 2020 17:32:10 Maternal Grandmother Malignant tumor of colon Not available 2020 17:32:37 Mother Malignant tumor of breast Not available 2020 17:32:53 Paternal Aunt Hypertensive disorder Not available 2020 17:33:15 Paternal Grandfather Diabetes mellitus Not available 2020 17:33:26 Paternal Grandmother Hypertensive disorder Not available 2020 17:33:39 Medical History Condition Response Allergies (Food, seasonal, environmental ) N Other N Drug/Latex Allergies/Reactions Y Blood Transfusion N Breast Cancer N Dermatologic Disorders N Lung Disease N Defects or Inherited Disease N Breast Problem Y Gestational Diabetes Y Hematologic disorders N Anesthesia Complications N History of STI Y Deep Vein Thrombosis N Polycystic ovary syndrome N Anxiety Disorder N Autoimmune disease N Arthritis N Polyps N Infertility N Acid Reflux (GERD) N History of abnormal pap Y Cancer N Varicosities N Stroke N Neurologic/Epilepsy N Endometriosis N High Cholesterol N Fibromyalgia N Headaches N Kidney Disease N Heart Problems N Thyroid Problems N Kidney or Bladder Problems N GI Problems N Eating Disorder [...] mcg/0.3 mL dose 10/05/2021 completed Iris Baer [facility] 08/29/2022 15:02:31 Past Encounters Encounter ID Performer Location Encounter Start Date Encounter Closed Date Diagnosis/Indication Diagnosis SNOMED-CT Code Diagnosis ICD10 Code Diagnosis Note [id number] Ngozi Carpenter MD [facility] [address] [address] 11/14/2020 17:22:43 11/15/2020 08:39:31 [id number] Riana Kerr CNM [facility] [address],[place] [address] 11/14/2020 17:23:27 11/20/2020 15:29:49 Gynecologic examination 91077772 Z01.419 test positive 985682659 Z32.01 Risk factors addressed: Tobacco Cessation, Safe [...] Sequential Screen handout given and discussed with patient.Ch ildbirth classes recommende d.New OB sheet given. [...] annual well woman examinatio n and address [facility] . [id number] Nallely Holloway [facility] [address],[place] [address] 10/11/2021 11:13:52 10/11/2021 11:39:10 [id number] Ngozi Carpenter MD [facility] [address],[place] [address] 12/06/2020 16:45:09 12/07/2020 08:07:25 [id number] Thanh Barragan MD [facility] [address],[place] [address] 12/07/2020 17:17:35 12/08/2020 16:20:05 Routine care 255701523 Z34.91 [id number] Nallely Holloway [facility] [address],[place] [address] 01/04/2021 16:41:55 01/04/2021 17:53:27 Routine care 752618123 Z34.92 [id number] Thanh Barragan MD [facility] [address],[place] [address] 01/04/2021 16:42:33 01/05/2021 08:53:27 [id number] Nallely Holloway [facility] [address],[place] [address] 02/07/2021 09:19:04 02/07/2021 10:39:07 Routine care 598102074 Z34.92 [id number] Thanh Barragan MD [facility] [address],[place] [address] 02/07/2021 09:18:34 02/07/2021 10:22:17 screening for malformation 251718196 Z36.3 [id number] Nallely Holloway [facility] [address],[place] [address] 03/08/2021 17:18:04 03/12/2021 21:59:04 Routine care 209052554 Z34.92 [id number] Ngozi Carpenter MD [facility] [address],[place] [address] 03/31/2021 11:13:36 03/31/2021 13:26:53 Routine care 029148455 Z34.03 Increased blood pressure 74615429 R03.0 - induced hypertension 83041630 O13.9 [id number] Nallely Holloway [facility] [address],[place] [address] 04/12/2021 17:09:34 04/12/2021 18:39:41 Routine care 519601087 Z34.92 [id number] Thanh Barragan MD [facility] [address],[place] [address] 04/17/2021 16:31:37 04/17/2021 17:50:25 Gestational diabetes mellitus class A1 93774489 O24.410 Informed pt of results, explained in [...] up appointmen ts she will inform us. [facility] paperwork was reviewed with pt here in the office to meet her needs to fulfill these appointmen ts. Discussed with pt in depth follow up hour PP 6 weeks to evaluate the need for PCP to be involved if levels are high. Advised otherwise, if normal PCP will need to follow yearly/angela rony 2 years to monitor. Discussed risks for [...] and explained in depth, no further concerns. [id number] Thanh Barragan MD [facility] [address] [address] 04/28/2021 13:47:49 04/28/2021 14:31:58 Gestational diabetes mellitus class A1 63622525 O24.410 Informed pt of results, explained in [...] from here on out to review with . Advised will monitor diet controlled and assess [...] and explained in depth, no further concerns. [id number] Thanh Barragan MD [facility] [address],[place] [address] 04/28/2021 13:48:11 04/28/2021 15:33:07 Routine care 660422933 Z34.91 [id number] Thanh Barragan MD [facility] [address],[facility] [place] [address] 04/28/2021 13:48:24 04/28/2021 15:57:11 Gestational diabetes mellitus class A1 70145221 O24.410 O36.8330 Z3A.32 Informed pt of results, [...] from here on out to review with . Advised will monitor diet controlled and assess [...] up appointmen ts she will inform us. [place] paperwork was reviewed with pt here in [...] and explained in depth, no further concerns. [id number] Thanh Barragan MD [facility] [address] [address] 05/05/2021 10:40:34 05/05/2021 12:05:48 Gestational diabetes mellitus class A1 61490282 O24.410 O36.8330 Z3A.32 [id number] Ngozi Carpenter MD [facility] [address] [address] 05/05/2021 10:41:08 05/05/2021 11:21:39 Gestational diabetes mellitus class A1 56266087 O24.410 [id number] Ngozi Carpenter MD [facility] [address],[place] [address] 05/05/2021 10:41:35 05/05/2021 14:25:42 Gestational diabetes mellitus class A1 97026087 O24.410 Routine an tenatal care 672775371 Z34.03 [id number] [facility] [address],[place] [address] 05/12/2021 11:37:29 05/12/2021 13:15:56 Routine care 250290993 Z34.92 [id number] Thanh Barragan MD [facility] [address],[place] [address] 05/12/2021 11:35:55 05/12/2021 12:07:58 Gestational diabetes mellitus class A1 17333684 O24.410 [id number] Thanh Barragan MD [facility] [address],[place] [address] 05/12/2021 11:37:07 05/12/2021 14:04:39 Gestational diabetes mellitus 14395352 O24.410 Z3A.34 [id number] [facility] [address],[place] [address] 05/19/2021 09:29:31 05/19/2021 11:04:22 Routine care 267779592 Z34.92 [id number] Thanh Barragan MD [facility] [address],[place] [address] 05/19/2021 09:29:04 05/19/2021 10:01:40 Gestational diabetes mellitus class A1 55006025 O24.410 [id number] Thanh Barragan MD [facility] [address],[place] [address] 05/19/2021 09:29:21 05/19/2021 10:28:56 Gestational diabetes mellitus 89591108 O24.410 Z3A.35 [id number] [facility] [address],[place] [address] 05/26/2021 10:26:59 05/26/2021 12:32:21 Routine care 438560311 Z34.92 [id number] Thanh Barragan MD [facility] [address],[place] [address] 05/26/2021 10:26:13 05/26/2021 11:01:59 Gestational diabetes mellitus class A1 72716259 O24.410 [id number] Thanh Barragan MD [facility] [address],[place] [address] 05/26/2021 10:26:38 05/26/2021 13:22:28 Gestational diabetes mellitus 06818694 O24.410 Z3A.36 [id number] Nallely Holloway [facility] [address],[place] [address] 06/02/2021 13:52:10 06/02/2021 15:20:56 Routine care 765863580 Z34.92 [id number] Thanh Barragan MD [facility] [address],[place] [address] 06/02/2021 13:50:38 06/02/2021 14:33:53 Gestational diabetes mellitus class A1 67136612 O24.410 [id number] Thanh Barragan MD [facility] [address],[place] [address] 06/02/2021 13:51:34 06/02/2021 14:51:07 Gestational diabetes mellitus 21189594 O24.410 Z3A.37 [id number] Nallely Holloway [facility] [address],[place] [address] 06/09/2021 09:18:21 06/09/2021 11:35:47 Routine care 940012960 Z34.92 [id number] Thanh Barragan MD [facility] [address],[place] [address] 06/09/2021 09:19:32 06/09/2021 10:14:21 Gestational diabetes mellitus class A1 08770855 O24.410 [id number] Thanh aBrragan MD [facility] [address],[place] [address] 06/09/2021 09:20:12 06/09/2021 10:24:43 Gestational diabetes mellitus 42742743 O24.410 Z3A.38 O36.5930 Small for gestational age fetus 558503071 O36.5930 [id number] Nallely Holloway [facility] [address],[place] [address] 06/21/2021 11:52:52 06/21/2021 12:10:09 -induced hypertension 05585425 O13.9 [id number] Nallely Holloway [facility] [address],[place] [address] 07/11/2021 10:42:05 07/11/2021 11:14:18 care 868499102 Z39.2 start slynd on saturday give one month for effectiven ess - induced hypertension 18411687 O13.9 check bp one week if elevated call, [plan 3 month med check and bp follow up [id number] Nallely Holloway [facility] [address],[place] [address] 08/29/2022 14:49:58 08/29/2022 15:21:55 Gynecologic examination 22920220 Z01.419 [id number] Thanh Barragan MD [facility] [address],[place] [address] 10/11/2023 15:10:12 10/11/2023 15:48:40 Gynecologic examination 37177139 Z01.419 Annual gynecologi reema exam performed. Patient [...] email. Pap smear- declined laboratory evaluation -done [id number] Thanh Barragan MD [facility] [address],[place] [address] 11/06/2024 15:19:22 11/06/2024 16:08:32 [id number] [facility] [address],[place] [address] 11/06/2024 15:19:43 11/06/2024 16:23:34 [id number] Thanh Barragan MD [facility] [address],[place] [address] 12/16/2024 14:49:31 12/16/2024 15:33:02 screening 316612893 Z36.82 Z3A.13 [id number] [facility] [address],[place] [address] 12/16/2024 14:50:41 12/18/2024 05:59:41 Gestation period, 13 weeks 36629163 Z3A.13 Routine an tenatal care 133720251 Z34.92 [id number] [facility] [address],[place] [address] 12/18/2024 14:50:48 12/18/2024 15:35:48 Atypical squamous cells of undetermined significance on cervical Papanicolaou smear 067810665 R87.610 f/u pap Human gracie llomavirus deoxyribonucleic acid detected, high risk on cervical specimen 574193855 R87.810 [id number] [facility] [address],[place] [address] 01/13/2025 15:50:08 01/13/2025 16:31:06 Gestation period, 16 weeks 43425209 Z3A.16 Anxiety 72278716 F41.9 if any suicidal thoughts to ED, se risks and benefits reviewed f/u 4 weeks anatomy scan [id number] Thanh Barragan MD [facility] [address],[place] [address] 02/03/2025 15:48:35 02/03/2025 17:03:16 screening for malformation 422848420 Z36.3 Z3A.19 [id number] Nallely Holloway [facility] [address],[place] [address] 02/03/2025 15:48:55 02/03/2025 17:28:49 Gestation period, 19 weeks 26351720 Z3A.19 [id number] [facility] [address],[place] [address] 03/03/2025 16:27:01 03/04/2025 02:38:24 Gestation period, 23 weeks 73441217 Z3A.23 [id number] Nallely Holloway [facility] [address],[place] [address] 03/30/2025 09:19:31 03/30/2025 09:40:52 Gestation period, 28 weeks 38623329 Z3A.28 [id number] Nallely Holloway [facility] [address],[place] [address] 04/16/2025 15:28:57 04/19/2025 03:29:07 [id number] [facility] [address],[place] [address] 04/28/2025 15:03:28 04/28/2025 16:19:13 Pruritic disorder of skin 5617276570 L29.9 Gestation period, 32 weeks 3249880 Z3A.32 [id number] Thanh Barragan MD [facility] [address],[place] [address] 05/05/2025 14:56:49 05/05/2025 15:42:39 Cholestasis of 301304556 O26.643 Z3A.33 [id number] [facility] [address],[place] [address] 05/05/2025 14:57:05 05/06/2025 09:07:35 Cholestasis of 323200460 O26.643 [id number] [facility] [address],[place] [address] 05/05/2025 14:57:17 05/05/2025 16:45:35 Gestation period, 33 weeks 47400282 Z3A.33 [id number] hTanh Barragan MD [facility] [address],[place] [address] 05/12/2025 15:41:50 05/12/2025 17:04:54 Cholestasis of 982171432 O26.643 Z3A.34 [id number] [facility] [address],[place] [address] 05/12/2025 15:42:05 05/17/2025 03:55:07 Cholestasis of 739501755 O26.643 [id number] [facility] [address],[place] [address] 05/12/2025 15:42:25 05/13/2025 23:57:19 Gestation period, 34 weeks 53100124 Z3A.34 [id number] Thanh Barragan MD [facility] [address],[place] [address] 05/19/2025 10:44:08 05/19/2025 11:26:20 Cholestasis of 995982316 O26.643 Z3A.35 [id number] [facility] [address] [address],[place] [address] 05/19/2025 10:44:21 05/20/2025 15:27:33 Cholestasis of [id number] O26.643 [id number] [facility] [address],[place] [address] 05/19/2025 10:44:32 05/19/2025 12:25:57 Cholestasis [id number] K83.1 Gestation period, 35 weeks [id number] Z3A.35 Health Concerns Section Related Observation LastModified by Organization Detai ls LastModified Time None Recorded Concern Status LastModified by Organization Details LastModified Time None Recorded Advance Directives Directive None Recorded Payers Insurance Date Sequence Insurance Name Policy Number Policy Romero Covered Member ID Romero Member ID Guarantor Name 05/22/2025 1 [employer] ([facility]) [id number] Stan Longoriaes [id number] Rosalie Adalberto 11/06/2024 1 [facility] ([facility]) [id number] Rosalie Jasbir Glover [id number] Rosalie Adalberto 11/06/2024 1 [facility] Rosalie Adalberto [id number] Rosalie Adalberto OBGyn Episode Ob Episode Information Episode Created Date Number of Fetuses Patient Bloodtype Patient rh Status Prepregnancy Weight lbs Domestic Partner Domestic Partner Phone Father Name [employer] Status 11/14/20 1 CLOSED Fetus Data First Name Last [...] Domestic Partner Domestic Partner Phone Father Name [employer] Status 12/07/19 21 1 O Positive 144 CLOSED Fetus Data First Name Last Name Admitted to NICU Weight (g) Sex Living Outcome Pediatric Complications Fetus ID Race Codes Race Delivery Type 2976.69 75 M true Full Term 7101 Vaginal Delivery Problems Problem Notes Pt declined genetic testing Problem Name Start Date End Date Resolution Snomed Code Not e Idiopathic urticaria 08143699 Elevated blood-pressure reading without diagnosis of hypertension [id number] very anxious in office. will check at home Gestational diabetes mellitus 04/14/2021 [id number] ruled in per SP Vinny Calculation Initial [...] Gestation 0 [email or web address] 12/07/2020 06/18/20 21 0 Pre- Flowsheet Flowsheet Date 11/14/2020 Navarro Score Blood [...] Weight in lbs Pre/Post Dialysis Refused Weight 146.863513053374 BP Diastolic BP Location Tested BP Systolic [...] Weight in lbs Pre/Post Dialysis Refused Weight 143.906771996754 BP Diastolic BP Location Tested BP Systolic BP Type 82 122 Fetus Heart Rate Present Fetus Movement A Yes Comments patient states that is havin g pelvic pain and nausea and vomiting, precautions reviewed, gender reveal Gregorio mcclendon f/u 4 week anatomy scan Flowsheet Date [...] Weight in lbs Pre/Post Dialysis Refused Weight 147.529320171152 BP Diastolic BP Location Tested BP Systolic [...] Weight in lbs Pre/Post Dialysis Refused Weight 157.465247309543 BP Diastolic BP Location Tested BP Systolic [...] Weight in lbs Pre/Post Dialysis Refused Weight 166.870822424269 BP Diastolic BP Location Tested BP Systolic [...] Weight in lbs Pre/Post Dialysis Refused Weight 168.918853463793 BP Diastolic BP Location Tested BP Systolic [...] Weight in lbs Pre/Post Dialysis Refused Weight 167.492544330175 BP Diastolic BP Location Tested BP Systolic [...] Weight in lbs Pre/Post Dialysis Refused Weight 167.301573903546 BP Diastolic BP Location Tested BP Systolic [...] Weight in lbs Pre/Post Dialysis Refused Weight 169.900983074997 BP Diastolic BP Location Tested BP Systolic [...] Weight in lbs Pre/Post Dialysis Refused Weight 169.287696378888 BP Diastolic BP Location Tested BP Systolic [...] Weight in lbs Pre/Post Dialysis Refused Weight 170.622709622167 BP Diastolic BP Location Tested BP Systolic [...] Weight in lbs Pre/Post Dialysis Refused Weight 171.258622636809 BP Diastolic BP Location Tested BP Systolic [...] Weight in lbs Pre/Post Dialysis Refused Weight 173.855610943188 BP Diastolic BP Location Tested BP Systolic [...] Estim ated Date of Delivery false Thalassemia (Icelandic, Papua [place]inean, Mediterranean, Or Background): MCV < 80 false Neural Tube Defect (Meningomyelocele, Spina Bifi da, Or Anencephaly) false Congenital Heart Defect false Down Syndrome false Cameron-Sachs (eg, Yazdanism, Cajun, Serbian-[place]) f alse Lani Disease false Sickle Cell Disease Or Trait () false Hemophilia Or Other Blood Disorders false Muscular Dystrophy false Cystic Fibrosis false Von's Chorea false Intellectual Disability/Autism false If Yes, [...] Post Complications Tubal Sterilization Discharge Date Comments [facility] idural 39.2 false Jewel Nallely BOB GDM Discharge Information Feeding Method Contraceptive Method Maternal HG B and HCT Levels Breast Ob Episode Information Episode Created Date Number of Fetuses Patient Bloodtype Patient rh Status Prepregnancy Weight lbs Domestic Partner Domestic Partner Phone Father Name [employer] Status 12/16/19 25 1 O Positive 146 Stan Adalberto OPEN Fetus Data First Name Last Name Admitted to NICU Weight (g) Sex Living Outcome Pediatric Complications Fetus ID Race Codes Race Delivery Type [id number] Problems Problem Notes ascus pap hpv6/7 coplo sched uled Problem Name Start Date End Date Resolution Snomed Code Not e Cholestasis 05/03/2025 [id number] Ursodio l 300mg BID delivery 36-37 wk increased to 500mg bid 05/05 Maternal history of gestational diabetes [id number] 2021, d iet Vinny Calculation Initial Vinny Date Initial Exam [...] Date Ultra Sound Latest Days Gestation 0 [email or web address] 03/19/2025 06/22/20 25 0 Pre- Flowsheet Flowsheet Date 12/16/2024 Navarro Score Blood Edema Fundus Height Fundus Units Glucose Ketones Leukocytes Nitrite Labor Signs Protein Cervic Dilation Cervic Effacement Cervic Station neg none none trace Type Weight in lbs Pre/Post Dialysis Refused Weight 145.702456672716 BP Diastolic BP Location Tested BP Systolic [...] Type Weight in lbs Pre/Post Dialysis Refused 143.617821193906 BP Diastolic BP Location Tested BP Systolic [...] Type Weight in lbs Pre/Post Dialysis Refused 148.900872526828 BP Diastolic BP Location Tested BP Systolic [...] Type Weight in lbs Pre/Post Dialysis Refused 148.767837813955 BP Diastolic BP Location Tested BP Systolic [...] Weight in lbs Pre/Post Dialysis Refused Weight 154.99957115313 BP Diastolic BP Location Tested BP Systolic BP Type 85 133 Fetus Heart Rate Present Fetus Movement A Yes Comments left breast us, swelling on side of nipple, no mass, cont to monitor, +FM, plan GCT next visit precautions and education Flowsheet Date 03/30/2025 Navarro Score Blood Edema Fundus Height Fundus Units Glucose Ketones Leukocytes Nitrite Labor Signs Protein Cervic Dilation Cervic Effacement Cervic Station neg none 27 cm Type Weight in lbs Pre/Post Dialysis Refused Weight 158.422357364118 BP Diastolic BP Location Tested BP Systolic BP Type 87 129 Fetus Heart Rate Present A 145 Present Fetus Movement A Yes Comments Patient states that is havin g some pain. muscular vs UTI, will send culture. +FM, GCT today precautions and education Flowsheet Date 04/16/2025 Navarro Score Blood Edema Fundus Height Fundus Units Glucose Ketones Leukocytes Nitrite Labor Signs Protein Cervic Dilation Cervic Effacement Cervic Station neg trace Type Weight in lbs Pre/Post Dialysis Refused Weight 166.543007103101 BP Diastolic BP Location Tested BP Systolic BP Type 87 132 Fetus Heart Rate Present Fetus Movement A Yes Comments Patient is having some swell ing. reviewed pih precautions, passed GCT +FM precautions and education f/u 2 weeks Flowsheet Date 04/28/2025 Navarro Score Blood Edema Fundus Height Fundus Units Glucose Ketones Leukocytes Nitrite Labor Signs Protein Cervic Dilation Cervic Effacement Cervic Station neg none Type Weight in lbs Pre/Post Dialysis Refused 168.589047128406 BP Diastolic BP Location Tested BP Systolic BP Type 88 130 Fetus Heart Rate Present Fetus Movement A Yes Comments +FM itching all over, will c heck labs start ursodial, call for preadmit, f/u 2 weeks, education and precautions Flowsheet Date 05/05/2025 Navarro Score Blood Edema Fundus Height Fundus Units Glucose Ketones Leukocytes Nitrite Labor Signs Protein Cervic Dilation Cervic Effacement Cervic Station Type Weight in lbs Pre/Post Dialysis Refused BP Diastolic BP Location Tested BP Systolic BP Type Fetus Heart Rate Present Fetus Movement Comments Flowsheet Date 05/05/2025 Navarro Score Blood Edema Fundus Height Fundus Units Glucose Ketones Leukocytes Nitrite Labor Signs Protein Cervic Dilation Cervic Effacement Cervic Station Type Weight in lbs Pre/Post Dialysis Refused Weight 170.084999558165 BP Diastolic BP Location Tested BP Systolic BP Type 87 137 Fetus Heart Rate Present Fetus Movement Comments Flowsheet Date 05/05/2025 Navarro Score Blood Edema Fundus Height Fundus Units Glucose Ketones Leukocytes Nitrite Labor Signs Protein Cervic Dilation Cervic Effacement Cervic Station neg none Type Weight in lbs Pre/Post Dialysis Refused 170.227162009338 BP Diastolic BP Location Tested BP Systolic BP Type 87 137 Fetus Heart Rate Present Fetus Movement A Yes Comments Patient is having BH contrac tions, swelling, nausea and vomiting. increased pruritus increase to 500mg BID, redraw labs, precautions, call for preadmit, +FM, f/u one week Flowsheet Date 05/12/2025 Navarro Score Blood Edema Fundus Height Fundus Units Glucose Ketones Leukocytes Nitrite Labor Signs Protein Cervic Dilation Cervic Effacement Cervic Station Type Weight in lbs Pre/Post Dialysis Refused BP Diastolic BP Location Tested BP Systolic BP Type Fetus Heart Rate Present Fetus Movement Comments Flowsheet Date 05/12/2025 Navarro Score Blood Edema Fundus Height Fundus Units Glucose Ketones Leukocytes Nitrite Labor Signs Protein Cervic Dilation Cervic Effacement Cervic Station Type Weight in lbs Pre/Post Dialysis Refused Weight 171.425595040877 BP Diastolic BP Location Tested BP Systolic BP Type 92 132 Fetus Heart Rate Present Fetus Movement Comments Flowsheet Date 05/12/2025 Navarro Score Blood Edema Fundus Height Fundus Units Glucose Ketones Leukocytes Nitrite Labor Signs Protein Cervic Dilation Cervic Effacement Cervic Station neg none Type Weight in lbs Pre/Post Dialysis Refused Weight 171.443538169488 BP Diastolic BP Location Tested BP Systolic BP Type 92 132 Fetus Heart Rate Present Fetus Movement A Yes Comments repeat labs today, bp elevat ed, denies sxs, +FM bpp 10/10 precautions and education f/u one week plan gbs Flowsheet Date 05/19/2025 Navarro Score Blood Edema Fundus Height Fundus Units Glucose Ketones Leukocytes Nitrite Labor Signs Protein Cervic Dilation Cervic Effacement Cervic Station Type Weight in lbs Pre/Post Dialysis Refused BP Diastolic BP Location Tested BP Systolic BP Type Fetus Heart Rate Present Fetus Movement Comments Flowsheet Date 05/19/2025 Navarro Score Blood Edema Fundus Height Fundus Units Glucose Ketones Leukocytes Nitrite Labor Signs Protein Cervic Dilation Cervic Effacement Cervic Station Type Weight in lbs Pre/Post Dialysis Refused BP Diastolic BP Location Tested BP Systolic BP Type Fetus Heart Rate Present Fetus Movement Comments Flowsheet Date 05/19/2025 Navarro Score Blood Edema Fundus Height Fundus Units Glucose Ketones Leukocytes Nitrite Labor Signs Protein Cervic Dilation Cervic Effacement Cervic Station Type Weight in lbs Pre/Post Dialysis Refused Weight 171.615053238857 BP Diastolic BP Location Tested BP Systolic BP Type 89 L arm 139 sitting Fetus Heart Rate Present Fetus Movement Comments +FM bpp 8/8 IOL next week, p recautions and education gbs collected Menstrual History Last Menstrual Date Menses Monthly [...]
--- NOTE | 2025-05-25 00:44 | PC.NURSE ---
CNM called in for update. RN reported SVE per Janet Lucero. IOL orders received.
[2025-05-25 01:20] LABS: Hematocrit 31.5 % (37.0-47.0); Hemoglobin 10.1 g/dL (12.0-15.0); Immature Granulocyte Percent A 1.1 % (0-0.5); Lymphocytes Absolute Auto 3.35 K/mm3 (0.9-3.2); Mean Corpuscular HGB Conc 32.1 g/dl (32-36); Mean Corpuscular Hemoglobin 26.9 pg (26-34); Mean Corpuscular Volume 84.0 fl (80-100); Nucleated Red Blood Cells Absolute Auto 0.000 K/mm3 (0.0-0.012); Nucleated Red Blood Cells Perc 0.0 % (0.0-0.2); Platelet Count Result 311 k/mm3 (150-375); Red Blood Count 3.75 M/mm3 (4.2-5.4); White Blood Count 10.5 K/mm3 (4.5-10.0)
[2025-05-25 01:25] LABS: Syphilis IgG/IgM Antibody Non-Reactive (Nonreactive)
[2025-05-25] MEDS: LACTATED RINGERS 1,000 ML 125 ML IV CONT ×2 (06:47→12:30)
--- NOTE | 2025-05-25 07:21 | WPDOBADMIT ---
Obstetrics - Admit Note Admission Note: record reviewed. No pertinent additions to the history and/or any subsequent changes in the physical findings that are not consistent with the expected course of the were found. Additions to the history and/or subsequent changes in the physical findings follow. IOL, Cholestasis, SVE 1.5/70/-2 AROM large amount of clear, odorless fluid, anticipate vaginal delivery
[2025-05-25] MEDS: OXYTOCIN 30 UNITS/NS 500 ML 30 UNITS/500 ML BAG IV CONT (08:02)
--- NOTE | 2025-05-25 09:18 | PHAR ---
Home medication identified. Ursodiol 500mg tablet. Returned to [facility] nursing unit
[2025-05-25] MEDS: URSODIOL 500 MG 500 EACH PO (09:33)
[2025-05-25] MEDS: VENLAFAXINE HCL XR 75 MG CAP.ER.24H PO (09:33)
--- NOTE | 2025-05-25 13:25 | PM.OBPRVD ---
OB - Vaginal Delivery Note Procedure Delivery date: 05/25/25 Events: Other (cholestasis) Induction method: AROM, Per Misoprostol Protocol and Per Pitocin Protocol Delivery monitor: External FHT and Internal Uterine Route of delivery: Episiotomy description: None Laceration Description: None Specimen: Yes Quantitative Blood Loss (ml): 50 Anesthesia type: Epidural Disposition: Floor Complications: No immediate complications Baby Date of : 05/25/25 Time of : 13:08 Gestational Age by Date: 36 gender: Female Weight (pounds): 6 Weight (ounces): 0 presentation: vertex position: Left Occiput Anterior Placenta delivery description: Spontaneous Cord Vessel Description: 3 Vessels, Clamped/Cut and Delayed Cord Clamping Narrative: criminal legal assistant at delivery
[2025-05-25] MEDS: OXYTOCIN 30 UNITS/NS 500 ML 30 UNITS/500 ML BAG 125 UNITS IV CONT (13:41)
--- NOTE | 2025-05-25 15:01 | S_PTH ---
PATIENT: Rosalie Glover LOC: [facility] U#:[id number] AGE/SX: 29/F ROOM: 290 RE05/25/[address]: Willy Castro MD : 1995 BED: 00 DIS: 05/27/2025 SPEC #: [id number] RECD: 05/26/25 13:44 STATUS: INDU BUCKNER #: [id number] DEENA: 05/25/25 15:[address]: Nallely Holloway DEPT: [facility] Surgical RECD BY: Tayla Martinez ENTERED: 05/26/25 13:44 SP TYPE: Surgical OTHR DR: MD Brett Scanlon MD Tissues: A - Placenta Procedures: Hematoxylin and Eosin Stain Gross and Microscopic Level 5
[2025-05-25] MEDS: WITCH HAZEL 40 PADS 1 PAD TOPICAL (15:32)
--- NOTE | 2025-05-25 16:10 | OBPPTRN ---
Patient transferred to post room # 290 via wheelchair. Support person present. Oriented to unit, room, information board, rooming in, admission packet and security measures. Patient verbalizes understanding.
--- NOTE | 2025-05-25 17:11 | PC.NURSE ---
1705. Introductions were made, then consulted with patient to assess needs related to . Discussed with mother her plans to feed her and the experience so far. Encouraged mother to express any questions or concerns she has regarding feedings. Advised her to call out for a latch check or if she needs assistance waking or positioning baby. Reviewed the blue feeding worksheet for required output and feeding at least 8-12 times every 24 hours. Breast pump provided due to infant in level 2 nursery. Instructions given on cleaning, care, usage, that there should be no pain, pumping schedule for milk production, collection, and storage of human milk. Patient was assessed for correct placement, flange size, to pump for comfort and nipple stretching/stimulation for adequate milk production every 3 hours (8 times in 24 hours) 1-2 times at night. Parents are encouraged to record the pumping schedule on the feeding sheet.?Mother voiced understanding of the education shared along with mom/baby guide and the pump measurement, flange fit handout for additional resource information. Reported to the Primary RN. Resources provided for inpatient and outpatient services with the feeding sheet, mom/baby guide, and name/number written on the communication board. Mother voiced understanding of information and will call if there is a request for assistance. Reported to the Primary RN.
[2025-05-25] MEDS: LABETALOL HCL 100 MG TABLET 200 MG PO (17:53)
[2025-05-25 18:09] LABS: Hematocrit 33.1 % (37.0-47.0); Hemoglobin 10.7 g/dL (12.0-15.0); Mean Corpuscular HGB Conc 32.3 g/dl (32-36); Mean Corpuscular Hemoglobin 27.0 pg (26-34); Mean Corpuscular Volume 83.4 fl (80-100); Platelet Count Result 249 k/mm3 (150-375); Red Blood Count 3.97 M/mm3 (4.2-5.4); White Blood Count 18.8 K/mm3 (4.5-10.0)
[2025-05-25 18:19] LABS: Alanine Aminotransferase 14 U/L (6-35); Albumin Level 2.9 g/dL (3.5-5.1); Alkaline Phosphatase 166 U/L (38-126); Anion Gap 4 mmol/L (4-12); Aspartate Amino Transferase 32 U/L (14-36); Bilirubin,Total 0.3 mg/dL (0.2-1.3); Blood Urea Nitrogen 3 mg/dL (7-17); Calcium 8.8 mg/dL (8.4-10.2); Carbon Dioxide 22 mmol/L (22-30); Chloride 107 mmol/L (98-107); Estimated CRCL calculation 117 ml/min; Estimated Glomerular Filt Rate > 60; Glucose 107 mg/dL (65-110); Potassium 3.5 mmol/L (3.4-5.0); Sodium 133 mmol/L (137-145); Total Protein 5.7 g/dL (6.3-8.2); Uric Acid 4.1 mg/dL (2.5-7.5)
[2025-05-26] VITALS (9 sets, daily range): BP systolic 125–155; BP diastolic 80–95; PULSE 63–76; RESP 16–20; TEMP 36.4–36.8; O2SAT 96–100
[2025-05-26] MEDS: IBUPROFEN 600 MG TABLET PO ×3 (01:45→17:28)
[2025-05-26] MEDS: ACETAMINOPHEN 325 MG TABLET 650 MG PO ×3 (02:18→20:58)
[2025-05-26 04:57] LABS: Hematocrit 29.5 % (37.0-47.0); Hemoglobin 9.5 g/dL (12.0-15.0)
--- NOTE | 2025-05-26 07:43 | P.PNOB_ITS ---
OB - PN: Subj Subjective Date/time seen: 05/26/25 07:43 Interval history: pp day 1 elevated bp, denies onofre visual changes, epigastric pain started on labetalol labs wnl, monitor bp's baby level 2 but may come upstairs later today OB - PN: Obj Data Labs 05/26/25 04:10 05/25/25 18:03 Labs: Laboratory Results - last 24 hr 05/25/25 05/26/25 18:03 04:10 WBC 18.8 H RBC 3.97 L Hgb 10.7 L 9.5 L Hct 33.1 L 29.5 L MCV 83.4 MCH 27.0 MCHC 32.3 RDW 12.7 Plt Count 249 MPV 9.6 Sodium 133 L Potassium 3.5 Chloride 107 Carbon Dioxide 22 Anion Gap 4 BUN 3 L Creatinine 0.65 L Estim Creat Clear Calc 117 Estimated GFR > 60 Glucose 107 Uric Acid 4.1 Calcium 8.8 Total Bilirubin 0.3 AST 32 ALT 14 Alkaline Phosphatase 166 H Total Protein 5.7 L Albumin 2.9 L OB - PN A/P Plan day: 1 Plan: routine care Time Spent With Patient Time: Total time spent is greater than 50% in coordination of care (as documented) at patient's floor/unit and/or counseling patient: Review of Systems 2 Review of Systems: All systems reviewed & are unremarkable except as noted in HPI and below Exam 2 Const: General: cooperative, healthy appearing and comfortable Chest: Chest palpation & inspection: normal inspection of the chest Resp: Effort & Inspection: normal respiratory effort Cardio: Rate: regular rate
[2025-05-26] MEDS: DOCUSATE SODIUM 100 MG CAPSULE PO ×2 (08:00→17:28)
[2025-05-26] MEDS: VENLAFAXINE HCL XR 75 MG CAP.ER.24H PO (08:00)
[2025-05-26] MEDS: LABETALOL HCL 100 MG TABLET 200 MG PO ×2 (08:00→20:57)
--- NOTE | 2025-05-26 08:25 | PC.NURSE ---
Introductions were made, then consulted with patient to assess needs related to . Mother is showering so her significant other is advised to have mom call out for any questions or concerns. Resources provided for inpatient and outpatient services with the feeding sheet, mom/baby guide and name written on the communication board. Mother voiced understanding of information and will call if there is a request for assistance. Reported to the Primary RN.
[2025-05-26] MEDS: MULTIVIT/MIN/PREN/FOL AC/IRON TABLET 1 TAB PO (11:27)
[2025-05-26] MEDS: LANOLIN (LANSINOH) 7.5 GM CREAM 1 APPLIC TOPICAL (11:28)
[2025-05-27 04:19] VITALS: BP 139/90
[2025-05-27 08:25] VITALS: BP 145/97; PULSE 71; RESP 16; TEMP 36.7; O2SAT 99
--- NOTE | 2025-05-27 08:45 | PC.NURSE ---
Met with patient to discuss discharge education. She is intending to pump and bottle feed. She does not plan to put baby to breast. She has a breast pump at home. Counseling provided on pumping frequency, duration, and consistency. Engorgement, mastitis, and plugged duct care reviewed. Discussed with mother the normal transition of colostrum to mature milk, increasing in volume on days 3-5. Patient has her Mom/Baby Guide and the Office phone number for additional resources. She is encouraged to call if she has any further questions or concerns. Father present and supportive for education. Primary RN updated.
--- NOTE | 2025-05-27 08:58 | P.PNOB_ITS ---
OB - PN: Subj Subjective Date/time seen: 05/27/25 08:58 Interval history: ppd #2 Doing well pain controlled BP responded well to labetalol Asymptomatic Baby doing well OB - PN: Obj Data Labs 05/26/25 04:10 05/25/25 18:03 OB - PN A/P Assessment and Plan (1) (spontaneous vaginal delivery): Code(s): O80 - Encounter for full-term uncomplicated delivery Status: Acute (2) Gestational hypertension: Code(s): O13.9 - Gestational [-induced] hypertension without significant proteinuria, unspecified trimester Status: Acute Assessment and Plan: - asymptomatic - labs wnl - BP overall normotensive after starting labetalol - continue labetalol - BP check in 1 week Plan day: 2 Plan: discharge home Time Spent With Patient Time: Total time spent is greater than 50% in coordination of care (as documented) at patient's floor/unit and/or counseling patient: Review of Systems 2 Review of Systems: All systems reviewed & are unremarkable except as noted in HPI and below Exam 2 Const: General: comfortable and no acute distress O rientation/consciousness: patient oriented x3 Resp: Effort & Inspection: normal respiratory effort
[2025-05-27 08:59] VITALS: PULSE 71
[2025-05-27] MEDS: DOCUSATE SODIUM 100 MG CAPSULE PO (08:59)
[2025-05-27] MEDS: LABETALOL HCL 100 MG TABLET 200 MG PO (08:59)
[2025-05-27] MEDS: MULTIVIT/MIN/PREN/FOL AC/IRON TABLET 1 TAB PO (08:59)
[2025-05-27] MEDS: VENLAFAXINE HCL XR 75 MG CAP.ER.24H PO (08:59)
[2025-05-27] MEDS: IBUPROFEN 600 MG TABLET PO (09:00)
--- NOTE | 2025-05-27 09:01 | PM.OBDSVD ---
DS: Admitting Diagnosis Discharge Date 05/27/25 Admitting Diagnosis intrahepatic cholestasis of DS: Discharge Diagnosis Discharge Diagnosis (1) Gestational hypertension: Code(s): O13.9 - Gestational [-induced] hypertension without significant proteinuria, unspecified trimester Status: Acute (2) (spontaneous vaginal delivery): Code(s): O80 - Encounter for full-term uncomplicated delivery Status: Acute OB - DS: Summary OB Procedures : None OB Procedures Intrapartum: Spontaneous Vag Delivery OB Procedures: : None Peripartum Data Laceration Description: None Episiotomy description: None Time Spent with Patient Time attestation: Total time spent providing and/or coordinating discharge services: DS: Data Data Completed and Pending Pending studies at discharge: Pending at discharge 05/25/25 15:01 Surgical [PTH] Routine Discharge Plan Discharge Attending physician on discharge: Willy Castro Discharging Clinician: Willy Castro Patient Disposition: Home Activity: may shower, as tolerated and pelvic rest Diet: regular Patient Instructions: Antibiotic Form Patient Language: Romanian Stand Alone Forms: General Discharge Information Follow-up/Referrals: Nallely Holloway CNM [Certified Nurse Finance Effectiveness Manager] - 1 Week Discharge Medications: New docusate sodium 100 mg Capsule 100 mg PO BID PRN (Reason: Constipation) Qty: 60 0RF ibuprofen 600 mg Tablet 600 mg PO Q6H PRN (Reason: Cramping) Qty: 30 0RF labetalol 100 mg Tablet 200 mg PO Q12HR Qty: 60 3RF Continued prenat.vits,reema,ams-vxtu-cjxuc Tablet 1 tablet PO DAILY venlafaxine 75 mg capsule,extended release 24hr 75 mg PO DAILY Discontinued ursodiol 500 mg tablet 500 mg PO BID Date of admission: 05/25/25 00:04 Primary Care Provider: Brett Stringer Admitting Provider: Thanh Barragan Attending physician on admission: Nallely Holloway Condition: Stable
[2025-05-27 10:00] VITALS: BP 127/81; PULSE 90
[2025-05-27 14:00] VITALS: BP 124/87; PULSE 100; RESP 16; TEMP 36.5; O2SAT 97
[2025-05-28 09:17] VITALS: BP 144/98; PULSE 74; RESP 18; TEMP 36.9; O2SAT 100
--- NOTE | 2025-05-28 12:53 | PC.NURSE ---
i had told Rosalie that i would come recheck her BP today before i went home, went up to recheck and she has left the hospital, BP was taken earlier minutes after she took her Labetalol
== END 2025-05-27 17:30 | disposition home or self-care (01) | DRG 807 ==
LOC: ANHOB2 05-27 09:01 → ANHLDR 05-31 08:06
PROVIDERS: Advanced Practice Midwife; Admitting Provider Obstetrics & Gynecology; PCP Family Medicine; Visit Provider Obstetrics & Gynecology
DX: O26.643 Intrahepatic cholestasis of pregnancy, third trimester (principal); Z37.0 Single live birth; Z3A.36 36 weeks gestation of pregnancy; O13.4 Gestational [pregnancy-induced] hypertension without significant proteinuria, complicating childbirth
CPT/HCPCS: 36415; 80053; 84550; 85014; 85018; 85025; 85027; 86593; 86850; 86900; 86901; 88307; A9270; J2590; J2795; J7120

== ENCOUNTER 2025-08-27 09:43 | Outpatient (CLI) | payer BC, SELFPAY ==
--- NOTE | ~2025-08-27 | US_ITS ---
US breast LT limited INDICATION: Probable left breast lump TECHNIQUE: Dedicated Limited left breast ultrasound COMPARISON: Ultrasound dated 03/05/2025 FINDINGS: The left breast is/are composed of normal heterogeneous echotexture without focal solid or cystic mass. IMPRESSION: 1: Normal limited left breast ultrasound. BI-RADS CATEGORY 1 - NEGATIVE Reviewed, dictated and finalized at location B.
== END 2025-08-27 09:44 | disposition home or self-care (01) ==
PROVIDERS: PCP Family Medicine; Visit Provider Advanced Practice Midwife
DX: N63.22 Unspecified lump in the left breast, upper inner quadrant (principal)
CPT/HCPCS: 76642